=== PATIENT | female | born 1935 | race Caucasian/White ===

== ENCOUNTER 2019-02-03 15:55 | Emergency (ER) | payer MEDICARE ==
[2019-02-03 16:13] VITALS: BP 122/73
--- NOTE | 2019-02-03 16:19 | EDM.PDOC ---
ED HPI GENERAL MEDICAL PROBLEM - General Chief Complaint: Upper Extremity Injury/Pain Stated Complaint: SENT FROM CLINIC Time Seen by Provider: 02/03/19 16:00 Source of Information: Reports: Patient, Detention Records, RN Notes Reviewed History Limitations: Reports: Other (Patient is a poor historian) - History of Present Illness INITIAL COMMENTS - FREE TEXT/NARRATIVE: 83-year-old female who presents from the walk-in clinic secondary to right hand weakness. Apparently the patient lives in the [facility] here at [place] and was noted by the staff this morning to have weakness of her right hand and wrist. She was unable to use her right hand or to extend her right wrist. She also had some weakness and moving her right upper extremity as well. The patient tells me that she noted the right hand weakness last night. She has had no headache. She has had no nausea or vomiting. There's been no trauma to the area. No fevers or chills. She does not appear to have any leg weakness nor does she have any complaints of leg weakness. His no numbness to her hand or elsewhere in her body. She is having no vision problems. She has had no falls. She denies any pain currently. She rates her pain as a 0/10. The history is gathered from the report from the [facility] and the report from the walk-in clinic and from the patient who is a poor historian. This is all the history that can be obtained at this point. There are no other associated signs or symptoms. There are no other modifying factors. 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: Other (see below) (Nothing) - Related Data Allergies Allergy/AdvReac Type Severity Reaction Status Date / Time No Known Allergies Allergy Verified 05/13/13 17:52 Home Meds: Home Meds Cholecalciferol (Vitamin D3) [Vitamin D3] 1,000 units PO DAILY 02/07/16 [History ] Famotidine 10 mg PO BEDTIME 02/07/16 [History] Lisinopril/Hydrochlorothiazide [Lisinopril-Hctz 10-12.5 mg Tab] 1 tab PO DAILY 02/07/16 [History] Nicotine [Habitrol] 21 mg TRDERM DAILY PRN #14 patch 02/10/16 [Rx] Sulfamethoxazole/Trimethoprim [IJD: Sulfamethoxazole/Trimethoprim DS] 1 tab PO BID #12 tablet 02/10/16 [Rx] Past Medical History HEENT History: Reports: Impaired Vision Cardiovascular History: Reports: Hypertension Gastrointestinal History: Reports: Chronic Constipation Musculoskeletal History: Reports: Back Pain, Chronic Psychiatric History: Reports: Addiction Endocrine/Metabolic History: Reports: Diabetes, Type II Oncologic (Cancer) History: Reports: Ovarian Dermatologic History: Reports: Other (See Below) (Bedsores) Other Dermatologic History: ulcer and open areas on labia, has pressure areas on buttocks. Has open area on Lt buttock and pressure there and coccyx area. - Infectious Disease History Infectious Disease History: Reports: Influenza - Past Surgical History GI Surgical History: Reports: Appendectomy Female Surgical History: Reports: Hysterectomy Social & Family History - Family History HEENT: Reports: Cataract Cardiac: Reports: None Respiratory: Reports: Asthma GI: Reports: None : Reports: None OBGYN: Reports: Musculoskeletal: Reports: None Neurological: Reports: Migraines, Parkinson's Psychiatric: Reports: Anxiety Endocrine/Metabolic: Reports: None Hematologic: Reports: None Immunologic: Reports: None Dermatologic: Reports: None Oncologic: Reports: None - Tobacco Use Smoking Status *Q: Unknown Ever Smoked - Living Situation & Occupation Living situation: Reports: Extended Care Facility (Lives in [facility]) Review of Systems - Review of Systems Review Of Systems: Unable To Obtain (The patient does respond to questions but her reliability is low.) Constitutional: Reports: No Symptoms (Denies fever) Eyes: Reports: No Symptoms (Denies vision problems) Ears: Reports: No Symptoms (Denies pain) Nose: Denies: Congestion Mouth/Throat: Reports: No Symptoms (Denies any trouble swallowing) Respiratory: Reports: No Symptoms (Denies trouble breathing) Cardiovascular: Reports: No Symptoms (Denies chest pain) GI/Abdominal: Reports: No Symptoms (No nausea no vomiting) Musculoskeletal: Reports: No Symptoms (No arm, leg or neck pain.) Neurological: Reports: Weakness (Of right hand and wrist) ED EXAM, GENERAL - Physical Exam Exam: See Below Exam Limited By: No Limitations General Appearance: Alert, No Apparent Distress, Obese Eye Exam: Bilateral Eye: EOMI, PERRL Ears: Normal External Exam Ear Exam: Bilateral Ear: Auricle Normal Nose: Normal Inspection, Normal Mucosa, No Blood Throat/Mouth: Normal Inspection, Normal Voice (Has slight slurred speech which per her history is unchanged) Head: Atraumatic, Normocephalic Neck: Normal Inspection, Supple, Non-Tender, Full Range of Motion Respiratory/Chest: No Respiratory Distress, Lungs Clear, Normal Breath Sounds, No Accessory Muscle Use, Chest Non-Tender Cardiovascular: Normal Peripheral Pulses, Regular Rate, Rhythm, No JVD Peripheral Pulses: 2+: Radial (L), Radial (R) GI/Abdominal: Normal Bowel Sounds, Soft, Non-Tender, Other (Protuberant) Back Exam: Normal Inspection Extremities: Normal Capillary Refill Neurological: Alert, Memory Loss Recent Events, Other (Right hand and wrist weakness. She is unable to extend her wrist or her fingers of her right hand and she also seems to be weak and her right upper extremity as well. There is no leg weakness identified.) Skin Exam: Warm, Dry, Other (Small ulcer on right heel with no evidence of infection.) EKG INTERPRETATION EKG Date: 02/03/19 Time: 18:42 Rate (Beats/Min): 84 [place]: Normal P-Wave: Present QRS: Normal ST-T: Other (Nonspecific ST-T changes) QT: Prolonged Comparison: NA - No Prior EKG EKG Interpretation Comments: Possible old inferior RI. Course - Vital Signs Last Recorded V/S: Last Vital Signs Temp 36.4 C 02/03/19 15:55 Pulse 90 02/03/19 15:55 Resp 18 02/03/19 15:55 BP 122/73 02/03/19 15:55 Pulse Ox 93 L 02/03/19 15:55 - Orders/Labs/Meds Orders: Active Orders 24 hr Category Date Time Status EKG Documentation Completion [RC] ASDIRECTED Care 02/03/19 16:32 Active Cervical Spine wo Cont [CT] Stat Exams 02/03/19 16:31 Ordered Chest 1V Frontal [CR] Stat Exams 02/03/19 16:31 Ordered Head wo Cont [CT] Stat Exams 02/03/19 16:31 Ordered EKG 12 Lead [EK] Routine Ther 02/03/19 16:31 Ordered Labs: Laboratory Tests 02/03/19 02/03/19 02/03/19 Range/Units 16:40 16:40 16:40 WBC 8.5 (4.5-12.0) X10-3/uL RBC 4.47 (3.23-5.20) x10(6)uL Hgb 12.9 (11.5-15.5) g/dL Hct 39.3 (30.0-51.3) % MCV 88.0 (80-96) fL MCH 28.9 (27.7-33.6) pg MCHC 32.9 (32.2-35.4) g/dL RDW 14.0 (11.5-15.5) % Plt Count 410 H (125-369) X10(3)uL MPV 7.7 (7.4-10.4) fL Neut % (Auto) 62.6 (46-82) % Lymph % (Auto) 26.3 (13-37) % [place] % (Auto) 7.7 (4-12) % Eos % (Auto) 3 (1.0-5.0) % Baso % (Auto) 0 (0-2) % Neut # (Auto) 5.3 (1.6-8.3) # Lymph # (Auto) 2.2 (0.6-5.0) # [place] # (Auto) 0.7 (0.0-1.3) # Eos # (Auto) 0.3 (0.0-0.8) # Baso # (Auto) 0.0 (0.0-0.2) # PT 9.8 (8.7-11.1) INR 1.01 (0.89-1.13) Sodium 136 (135-145) mmol/L Potassium 4.8 (3.5-5.3) mmol/L Chloride 97 L (100-110) mmol/L Carbon Dioxide 28 (21-32) mmol/L BUN 62 H D (7-18) mg/dL Creatinine 1.2 H (0.55-1.02) mg/dL Est Cr Clr Drug Dosing TNP Estimated GFR (MDRD) 43 L (>60) BUN/Creatinine Ratio 51.7 H (9-20) Glucose 137 H (80-116) mg/dL Calcium 9.5 (8.6-10.2) mg/dL Magnesium 1.8 (1.8-2.5) mg/dL Total Bilirubin 0.3 (0.1-1.3) mg/dL AST 14 (5-25) IU/L ALT 18 (12-36) U/L Alkaline Phosphatase 130 H (56-112) IU/L Total Protein 7.8 (6.0-8.0) g/dL Albumin 3.3 (3.2-4.6) g/dL Globulin 4.5 g/dL Albumin/Globulin Ratio 0.7 Urine Color (YELLOW) Urine Appearance (CLEAR) Urine pH (5.0-6.5) Ur Specific [place] (1.010-1.025) Urine Protein (NEGATIVE) mg/dL Urine Glucose (UA) (NORMAL) mg/dL Urine Ketones (NEGATIVE) mg/dL Urine Occult Blood (NEGATIVE) Urine Nitrite (NEGATIVE) Urine Bilirubin (NEGATIVE) Urine Urobilinogen (NEGATIVE) mg/dL Ur Leukocyte Esterase (NEGATIVE) Urine RBC (0-5) Urine WBC (0-5) Ur Squamous Epith Cells (NS,R,O) Urine Bacteria (NS) 02/03/19 Range/Units 18:36 WBC (4.5-12.0) X10-3/uL RBC (3.23-5.20) x10(6)uL Hgb (11.5-15.5) g/dL Hct (30.0-51.3) % MCV (80-96) fL MCH (27.7-33.6) pg MCHC (32.2-35.4) g/dL RDW (11.5-15.5) % Plt Count (125-369) X10(3)uL MPV (7.4-10.4) fL Neut % (Auto) (46-82) % Lymph % (Auto) (13-37) % [place] % (Auto) (4-12) % Eos % (Auto) (1.0-5.0) % Baso % (Auto) (0-2) % Neut # (Auto) (1.6-8.3) # Lymph # (Auto) (0.6-5.0) # [place] # (Auto) (0.0-1.3) # Eos # (Auto) (0.0-0.8) # Baso # (Auto) (0.0-0.2) # PT (8.7-11.1) INR (0.89-1.13) Sodium (135-145) mmol/L Potassium (3.5-5.3) mmol/L Chloride (100-110) mmol/L Carbon Dioxide (21-32) mmol/L BUN (7-18) mg/dL Creatinine (0.55-1.02) mg/dL Est Cr Clr Drug Dosing Estimated GFR (MDRD) (>60) BUN/Creatinine Ratio (9-20) Glucose (80-116) mg/dL Calcium (8.6-10.2) mg/dL Magnesium (1.8-2.5) mg/dL Total Bilirubin (0.1-1.3) mg/dL AST (5-25) IU/L ALT (12-36) U/L Alkaline Phosphatase (56-112) IU/L Total Protein (6.0-8.0) g/dL Albumin (3.2-4.6) g/dL Globulin g/dL Albumin/Globulin Ratio Urine Color Yellow (YELLOW) Urine Appearance Clear (CLEAR) Urine pH 7.0 H (5.0-6.5) Ur Specific [place] 1.000 L (1.010-1.025) Urine Protein Negative (NEGATIVE) mg/dL Urine Glucose (UA) Normal (NORMAL) mg/dL Urine Ketones Negative (NEGATIVE) mg/dL Urine Occult Blood Negative (NEGATIVE) Urine Nitrite Negative (NEGATIVE) Urine Bilirubin Negative (NEGATIVE) Urine Urobilinogen 1 H (NEGATIVE) mg/dL Ur Leukocyte Esterase Negative (NEGATIVE) Urine RBC 0-5 (0-5) Urine WBC 0-5 (0-5) Ur Squamous Epith Cells Rare (NS,R,O) Urine Bacteria Rare H (NS) - Radiology Interpretation Free Text/Narrative:: CT scan of head showed no evidence of stroke or bleeding per the radiologist. CT scan of cervical spine showed no evidence of fracture. Portal chest x-ray shows no acute disease. - Re-Assessments/Exams Free Text/Narrative Re-Assessment/Exam: 02/03/19 18:45: Patient's exam is consistent with a small stroke on the left motor strip affecting her right hand and wrist. She may have a little involvement of her right arm as well. Her blood tests are reassuringly normal or unchanged from previous. Her chest x-ray was normal. The CT scan of her head showed no bleeding and as of yet no evidence of acute stroke. The cervical spine CT showed no evidence of fracture. The urinalysis is pending at this point. The patient has remained vitally and neurologically stable while in the emergency department. It appears that the stroke is greater than 24 hours old. It is also possible that this represents a peripheral nerve palsy but I have no history of trauma or circumstances that would have led to this occurring. She is a resident of [facility] and the level of care that she would need or treatment of her with assistance of daily living activities and physical therapy could be performed in the [facility] and acute admission to the hospital would be unnecessary. The patient is desirous of going back to the [facility] and I called and discussed her case with Raman Silvestre, her son and power of training and development assistant, and he feels that discharge back to the [facility] with appropriate follow-up and outpatient testing and set up of the physical and occupational therapy to be done at the [facility] through her primary doctor would be appropriate. I am awaiting the results of the urine test and the nursing staff will do a bedside swallowing eval. If the patient passes her bedside swallowing evaluation she will go back to the [facility] as outlined above with any further workup needed as an outpatient through the [facility] and her primary doctor. I will also place patient on aspirin 325 mg by mouth daily. 02/03/19 19:11: Urinalysis was normal. Patient has passed the bedside swallow eval. I discussed admission to the hospital versus disposition back to the [facility] with the patient and she is desirous of being discharged back to the [facility] with any additional outpatient workup and therapy through her primary doctor through the [facility]. I did offer her admission but she would prefer to be back at the [facility]. Departure - Departure Time of Disposition: 19:30 Disposition: DC/Tfer to [facility] Condition: Fair (Stable) Clinical Impression: Right hand weakness CVA (cerebral vascular accident) Qualifiers: CVA mechanism: unspecified Qualified Code(s): I63.9 - Cerebral infarction, unspecified - Discharge Information Instructions: Ischemic Stroke, [id number] Referrals: Luis Perdomo MD [Primary Care Provider] - Forms: ED Department Discharge Additional Instructions: You appear to have had a stroke involving the part of the brain the controls her right hand and wrist and part of your right arm. It is also possible that you had an injury to a nerve going to your right arm from your neck. However, I feel that the hand and arm weakness is likely from a stroke. Your blood tests and urine tests were reassuringly normal or unchanged from previous. Your EKG was normal. There is really no difference in the care that he would receive at the [facility] as opposed to the hospital and therefore you are being discharged back to the [facility]. Your primary doctor will arrange for further testing that can be done through the [facility] and for physical and occupational therapy which may also be done through the [facility]. You will be given 1 full strength aspirin every day as medicine. Back to the emergency department for worsening weakness, vomiting, inability to swallow liquids or food, trouble talking or any other concerning sign or symptom. - My Orders Last 24 Hours: My Active Orders 02/03/19 16:31 Cervical Spine wo Cont [CT] Stat Chest 1V Frontal [CR] Stat Head wo Cont [CT] Stat EKG 12 Lead [EK] Routine 02/03/19 16:32 EKG Documentation Completion [RC] ASDIRECTED - Assessment/Plan Last 24 Hours: My Active Orders 02/03/19 16:31 Cervical Spine wo Cont [CT] Stat Chest 1V Frontal [CR] Stat Head wo Cont [CT] Stat EKG 12 Lead [EK] Routine 02/03/19 16:32 EKG Documentation Completion [RC] ASDIRECTED
[2019-02-03] MEDS ORDERED: Aspirin 81 MG Tab.Chew PO ONE (19:14)
== END 2019-02-03 19:41 ==
LOC: FB.ED 15:55
DX: I63.9 Cerebral infarction, unspecified (principal); I10 Essential (primary) hypertension; E11.9 Type 2 diabetes mellitus without complications; Z79.899 Other long term (current) drug therapy
CPT/HCPCS: 36415; 70450; 71045; 72125; 80053; 81001; 83735; 85025; 85610; 93005; 99285; A9270

== ENCOUNTER 2019-09-13 05:15 | Emergency (ER) | payer MEDICARE ==
[2019-09-13] MEDS ORDERED: Sodium Chloride 0.9% 10 ML Syringe FLUSH PRN (05:28)
--- NOTE | 2019-09-13 05:52 | EDM.PDOC ---
ED HPI GENERAL MEDICAL PROBLEM - General Stated Complaint: STROKE Time Seen by Provider: 09/13/19 05:20 Source of Information: Reports: Patient History Limitations: Reports: No Limitations - History of Present Illness INITIAL COMMENTS - FREE TEXT/NARRATIVE: 84 [facility] resident who reports droopiness of the face to the left, reported to staff at about 0430. She was last seen well at 0215. Was also noted to have slurred speech. Filomena has a h/o a Stroke, HTN, and DM2.She is a full body lift. - Related Data Allergies Allergy/AdvReac Type Severity Reaction Status Date / Time No Known Allergies Allergy Verified 05/13/13 17:52 Home Meds: Home Meds Cholecalciferol (Vitamin D3) [Vitamin D3] 1,000 units PO DAILY 02/07/16 [History ] Famotidine 10 mg PO BEDTIME 02/07/16 [History] Lisinopril/Hydrochlorothiazide [Lisinopril-Hctz 10-12.5 mg Tab] 1 tab PO DAILY 02/07/16 [History] Nicotine [Habitrol] 21 mg TRDERM DAILY PRN #14 patch 02/10/16 [Rx] Sulfamethoxazole/Trimethoprim [IJD: Sulfamethoxazole/Trimethoprim DS] 1 tab PO BID #12 tablet 02/10/16 [Rx] Past Medical History HEENT History: Reports: Impaired Vision Cardiovascular History: Reports: Hypertension Respiratory History: Reports: None Gastrointestinal History: Reports: Chronic Constipation Other Gastrointestinal History: problems with constipation Genitourinary History: Reports: None 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 Does not take pills for this, stopped at least 3 years ago Hematologic History: Reports: None Immunologic History: Reports: None Oncologic (Cancer) History: Reports: Ovarian Dermatologic History: Reports: Other (See Below) (Bedsores) Other Dermatologic History: ulcer and open areas on labia, has pressure areas on buttocks. Has open area on Lt buttock and pressure there and coccyx area. - Infectious Disease History Infectious Disease History: Reports: Influenza - Past Surgical History GI Surgical History: Reports: Appendectomy Female Surgical History: Reports: Hysterectomy Social & Family History - Family History HEENT: Reports: Cataract Cardiac: Reports: None Respiratory: Reports: Asthma GI: Reports: None : Reports: None OBGYN: Reports: Musculoskeletal: Reports: None Neurological: Reports: Migraines, Parkinson's Psychiatric: Reports: Anxiety Endocrine/Metabolic: Reports: None Hematologic: Reports: None Immunologic: Reports: None Dermatologic: Reports: None Oncologic: Reports: None - Caffeine Use Caffeine Use: Reports: Coffee - Living Situation & Occupation Living situation: Reports: Extended Care Facility (Lives in [facility]) ED ROS GENERAL - Review of Systems Review Of Systems: Comprehensive ROS is negative, except as noted in HPI. ED EXAM, NEURO - Physical Exam Exam: See Below Exam Limited By: No Limitations General Appearance: Alert, No Apparent Distress Nose: Normal Inspection Throat/Mouth: Normal Inspection Head Exam: Atraumatic Neck: Normal Inspection Respiratory/Chest: No Respiratory Distress, Lungs Clear Cardiovascular: Normal Peripheral Pulses, Regular Rate, Rhythm, No Murmur Neurological: Alert, Other (mild left facial never palsy). No: CN II-XII Intact Extremities: Pedal Edema Psychiatric: Depressed Mood Skin Exam: Warm EKG INTERPRETATION Rhythm: NSR Course - Orders/Labs/Meds Orders: Active Orders 24 hr Category Date Time Status EKG Documentation Completion [RC] ASDIRECTED Care 09/13/19 05:28 Active EKG Documentation Completion [RC] ASDIRECTED Care 09/13/19 05:28 Active Head wo Cont [CT] Stat Exams 09/13/19 05:28 Ordered Sodium Chloride 0.9% [Saline Flush] Med 09/13/19 05:28 Active 10 ml FLUSH ASDIRECTED PRN Peripheral IV Insertion Adult [OM.PC] Routine Oth 09/13/19 05:28 Ordered EKG 12 Lead [EK] Routine Ther 09/13/19 05:28 Ordered Medication Orders Sodium Chloride (Saline Flush) 10 ml FLUSH ASDIRECTED PRN PRN Reason: Keep Vein Open Labs: Laboratory Tests 09/13/19 09/13/19 09/13/19 Range/Units 05:40 05:40 05:40 WBC 9.1 (4.5-12.0) X10-3/uL RBC 3.94 (3.23-5.20) x10(6)uL Hgb 11.8 (11.5-15.5) g/dL Hct 35.8 (30.0-51.3) % MCV 90.8 (80-96) fL MCH 30.0 (27.7-33.6) pg MCHC 33.1 (32.2-35.4) g/dL RDW 13.7 (11.5-15.5) % Plt Count 453 H (125-369) X10(3)uL MPV 7.3 L (7.4-10.4) fL Neut % (Auto) 69.9 (46-82) % Lymph % (Auto) 19.9 (13-37) % [place] % (Auto) 7.0 (4-12) % Eos % (Auto) 3 (1.0-5.0) % Baso % (Auto) 1 (0-2) % Neut # (Auto) 6.4 (1.6-8.3) # Lymph # (Auto) 1.8 (0.6-5.0) # [place] # (Auto) 0.6 (0.0-1.3) # Eos # (Auto) 0.2 (0.0-0.8) # Baso # (Auto) 0.1 (0.0-0.2) # Sodium 138 (135-145) mmol/L Potassium 4.2 (3.5-5.3) mmol/L Chloride 100 (100-110) mmol/L Carbon Dioxide 28 (21-32) mmol/L BUN 24 H (7-18) mg/dL Creatinine 1.1 H (0.55-1.02) mg/dL Est Cr Clr Drug Dosing TNP Estimated GFR (MDRD) 47 L (>60) BUN/Creatinine Ratio 21.8 H (9-20) Glucose 125 H (80-116) mg/dL Calcium 8.5 L (8.6-10.2) mg/dL Troponin I 25.1 (4.0-60.3) pg/mL Meds: Medications Generic Name Dose Route Start Last Admin Trade Name Freq PRN Reason Stop Dose Admin Sodium Chloride 10 ml 09/13/19 05:28 Saline Flush FLUSH ASDIRECTED PRN Keep Vein Open Departure - Departure Time of Disposition: 05:58 Disposition: DC/Tfer to SNF 03 Clinical Impression: H/O: CVA (cerebrovascular accident), TIA (transient ischemic attack) - Discharge Information Instructions: Transient Ischemic Attack, [id number] Referrals: PCP,None [Primary Care Provider] - Forms: ED Department Discharge Sepsis Event Note - Focused Exam Date Exam was Performed: 09/13/19 Time Exam was Performed: 06:14 - Problem List & Annotations (1) TIA (transient ischemic attack) SNOMED Code(s): 044287994 Code(s): G45.9 - TRANSIENT CEREBRAL ISCHEMIC ATTACK, UNSPECIFIED Status: Acute Current Visit: Yes (2) HTN (hypertension) SNOMED Code(s): 34082464 Code(s): I10 - ESSENTIAL (PRIMARY) HYPERTENSION Status: Acute Current Visit: Yes Qualifiers: Hypertension type: essential hypertension Qualified Code(s): I10 - Essential (primary) hypertension (3) DM2 (diabetes mellitus, type 2) SNOMED Code(s): 45631312 Code(s): E11.9 - TYPE 2 DIABETES MELLITUS WITHOUT COMPLICATIONS Status: Acute Current Visit: Yes (4) H/O: CVA (cerebrovascular accident) SNOMED Code(s): 624473495 Code(s): Z86.73 - PRSNL HX OF TIA (TIA), AND CEREB INFRC W/O RESID DEFICITS Status: Acute Current Visit: Yes - Problem List Review Problem List Initiated/Reviewed/Updated: Yes - My Orders Last 24 Hours: My Active Orders 09/13/19 05:28 EKG Documentation Completion [RC] ASDIRECTED EKG Documentation Completion [RC] ASDIRECTED Head wo Cont [CT] Stat Sodium Chloride 0.9% [Saline Flush] 10 ml FLUSH ASDIRECTED PRN Peripheral IV Insertion Adult [OM.PC] Routine EKG 12 Lead [EK] Routine - Assessment/Plan Last 24 Hours: My Active Orders 09/13/19 05:28 EKG Documentation Completion [RC] ASDIRECTED EKG Documentation Completion [RC] ASDIRECTED Head wo Cont [CT] Stat Sodium Chloride 0.9% [Saline Flush] 10 ml FLUSH ASDIRECTED PRN Peripheral IV Insertion Adult [OM.PC] Routine EKG 12 Lead [EK] Routine Plan: CT was negative,as was EKG.Patient on ASA. Vital signs stable No focal signs noted on extremity exam. Will DC back to [place].
[2019-09-13 07:19] VITALS: BP 133/65; PULSE 86
== END 2019-09-13 06:33 ==
LOC: FB.ED 05:15
DX: G45.9 Transient cerebral ischemic attack, unspecified (principal); I10 Essential (primary) hypertension; E11.9 Type 2 diabetes mellitus without complications; Z79.899 Other long term (current) drug therapy; Z86.73 Personal history of transient ischemic attack (TIA), and cerebral infarction without residual deficits
CPT/HCPCS: 36415; 70450; 80048; 84484; 85025; 93005; 93010; 99284; 99285-25

== ENCOUNTER 2020-09-19 16:01 | Inpatient (IN) | payer MEDICARE ==
[2020-09-19] MEDS ORDERED: Sodium Chloride 0.9% 500 ML IV ONE (16:38)
--- NOTE | 2020-09-19 16:45 | EDM.PDOC ---
ED HPI GENERAL MEDICAL PROBLEM - General Chief Complaint: General Stated Complaint: NOT FEELING WELL Time Seen by Provider: 09/19/20 16:40 Source of Information: Reports: Patient, Snf Records History Limitations: Reports: Other (Dementia) - History of Present Illness INITIAL COMMENTS - FREE TEXT/NARRATIVE: Patient sent from the [facility] due to nausea, cough, chills, poor PO intake, tachycardia to 103 bpm, and generalized weakness since this morning. But feels better now than she did this morning. CXR done on 09/14/20 showed possible pneumonia, she was not prescribed antibiotics. Patient was given her 2nd COVID vaccine yesterday. Denies chest pain, SOB, abdominal pain, or vomiting. She states she hasn't eaten today due to nausea. Patient code status is DNR per [facility] records. Onset: Today - Related Data Allergies Allergy/AdvReac Type Severity Reaction Status Date / Time No Known Allergies Allergy Verified 09/19/20 16:25 Home Meds: Home Meds Acetaminophen 650 mg PO Q4HR PRN 09/19/20 [History] Albuterol Sulfate 1 ampule INH TID PRN 09/19/20 [History] Aspirin 325 mg PO DAILY 09/19/20 [History] Bumetanide [Bumex] 0.5 mg PO DAILY 09/19/20 [History] Camphor/Menthol [Sarna Lotion] 1 applic TOP BID 09/19/20 [History] Gabapentin [Neurontin] 100 mg PO TID 09/19/20 [History] Magnesium 250 mg PO DAILY 09/19/20 [History] Menthol [Biofreeze] 1 applic TOP BID 09/19/20 [History] Omeprazole 20 mg PO ACBREAKFAST 09/19/20 [History] lisinopriL [Lisinopril] 10 mg PO DAILY 09/19/20 [History] metFORMIN [Glucophage] 1,000 mg PO DAILY 09/19/20 [History] metFORMIN [Glucophage] 500 mg PO BEDTIME 09/19/20 [History] polyethylene glycoL 3350 [MiraLAX] 17 g PO ASDIRECTED 09/19/20 [History] Past Medical History HEENT History: Reports: Impaired Vision Cardiovascular History: Reports: Hypertension Respiratory History: Reports: None Gastrointestinal History: Reports: Chronic Constipation, GERD Other Gastrointestinal History: problems with constipation Genitourinary History: Reports: None KEY FILER History: Reports: Musculoskeletal History: Reports: Back Pain, Chronic Neurological History: Reports: CVA, TIA Psychiatric History: Reports: Dementia Endocrine/Metabolic History: Reports: Diabetes, Type II Other Endocrine/Metabolic History: borderline diabetic? Does not take pills for this, stopped at least 3 years ago Hematologic History: Reports: None Immunologic History: Reports: None Oncologic (Cancer) History: Reports: Ovarian - Infectious Disease History Infectious Disease History: Reports: Influenza - Past Surgical History GI Surgical History: Reports: Appendectomy Female Surgical History: Reports: Hysterectomy Social & Family History - Family History HEENT: Reports: Cataract Cardiac: Reports: None Respiratory: Reports: Asthma GI: Reports: None : Reports: None OBGYN: Reports: Musculoskeletal: Reports: None Neurological: Reports: Migraines, Parkinson's Psychiatric: Reports: Anxiety Endocrine/Metabolic: Reports: None Hematologic: Reports: None Immunologic: Reports: None Dermatologic: Reports: None Oncologic: Reports: None - Caffeine Use Caffeine Use: Reports: Coffee - Living Situation & Occupation Living situation: Reports: Extended Care Facility (Lives in [facility]) ED ROS GENERAL - Review of Systems Review Of Systems: Comprehensive ROS is negative, except as noted in HPI. ED EXAM, GENERAL - Physical Exam Exam: See Below Exam Limited By: No Limitations General Appearance: Alert, WD/WN, No Apparent Distress Eye Exam: Bilateral Eye: EOMI, PERRL Nose: Normal Inspection Throat/Mouth: No Airway Compromise Head: Atraumatic, Normocephalic Neck: Supple Respiratory/Chest: No Respiratory Distress, Lungs Clear, Normal Breath Sounds Cardiovascular: Regular Rate, Rhythm, No Gallop, No Murmur GI/Abdominal: Normal Bowel Sounds, Soft, Non-Tender, No Distention Back Exam: Full Range of Motion Extremities: Normal Range of Motion Neurological: Alert Skin Exam: Warm, Dry, Intact #1 Interpretation EKG Date: 09/19/20 Time: 17:46 Rhythm: NSR Rate (Beats/Min): 94 [place]: Normal P-Wave: Present QRS: Other (Nonspecific intraventricular conduction delay) ST-T: Depressed (lateral leads) QT: Normal Comparison: Change From Previous EKG Course - Vital Signs Last Recorded V/S: Last Vital Signs Temp 36.7 C 09/19/20 16:05 Pulse 93 09/19/20 17:00 Resp 18 09/19/20 17:00 BP 103/62 09/19/20 17:00 Pulse Ox 97 09/19/20 17:00 - Orders/Labs/Meds Orders: Active Orders 24 hr Category Date Time Status EKG Documentation Completion [RC] ASDIRECTED Care 09/19/20 17:20 Active CORONAVIRUS COVID-19 MARKUS [MOLEC] Stat Lab 09/19/20 18:15 Received CULTURE BLOOD [BC] Urgent Lab 09/19/20 16:48 Received CULTURE BLOOD [BC] Urgent Lab 09/19/20 16:55 Received CULTURE URINE [RM] Stat Lab 09/19/20 18:53 Ordered LACTIC ACID [CHEM] Routine Lab 09/19/20 19:00 Ordered TROPONIN I [CHEM] Routine Lab 09/19/20 19:00 Ordered Heparin Sodium/0.45% NaCl [Heparin 25,000 Units in 1/2 Med 09/19/20 19:00 Active NS 500 ML] 25,000 units in 500 ml IV TITRATE Blood Culture x2 Reflex Set [OM.PC] Urgent Oth 09/19/20 16:35 Ordered Isolation [COMM] Routine Oth 09/19/20 16:37 Ordered EKG 12 Lead [EK] Stat Ther 09/19/20 17:19 Ordered Medication Orders Heparin Sodium/Sodium Chloride (Heparin 25,000 Units In 1/2 Ns 500 Ml) 25,000 units in 500 mls @ 17.527 mls/hr IV TITRATE DEO; Protocol Labs: Laboratory Tests 09/19/20 09/19/20 09/19/20 Range/Units 16:48 16:48 16:48 WBC 10.1 (3.0-10.3) x10-3/uL RBC 4.26 (3.60-5.20) x10(6)uL Hgb 12.5 (11.4-15.5) g/dL Hct 39.2 (34.2-48.2) % MCV 92.1 (76.7-100.5) fL MCH 29.4 (23.9-33.9) pg MCHC 31.9 (31.9-34.8) g/dL RDW 15.5 (12.3-16.5) % Plt Count 394 (151-488) x10(3)uL MPV 8.3 (7.1-12.4) fL Neut % (Auto) 88.7 H (30.8-76.2) % Lymph % (Auto) 5.6 L (18.4-52.1) % [place] % (Auto) 5.4 (4.4-15.7) % Eos % (Auto) 0.0 L (0.6-8.1) % Baso % (Auto) 0.3 (0.2-1.5) % Neut # (Auto) 8.9 H (1.5-6.3) x10-3/uL Lymph # (Auto) 0.6 L (1.0-4.4) x10-3/uL [place] # (Auto) 0.5 (0.3-1.0) x10-3/uL Eos # (Auto) 0.0 (0.0-0.8) x10-3/uL Baso # (Auto) 0.0 (0.0-0.1) x10-3/uL PT (9.0-11.1) sec INR (1.00-1.24) APTT (24.4-33.2) SECONDS Sodium 135 (135-145) mmol/L Potassium 4.0 (3.5-5.3) mmol/L Chloride 98 L (100-110) mmol/L Carbon Dioxide 24 (21-32) mmol/L BUN 34 H (7-18) mg/dL Creatinine 1.2 H (0.55-1.02) mg/dL Est Cr Clr Drug Dosing 29.06 mL/min Estimated GFR (MDRD) 43 L (>60) BUN/Creatinine Ratio 28.3 H (9-20) Glucose 194 H (80-116) mg/dL Lactic Acid (0.4-2.0) mmol/L Calcium 9.4 (8.6-10.2) mg/dL Total Bilirubin 0.4 (0.1-1.3) mg/dL AST 81 H D (5-25) IU/L ALT 90 H D (12-36) U/L Alkaline Phosphatase 545 H (56-112) IU/L Troponin I 2703.5 H* (4.0-60.3) pg/mL Total Protein 7.9 (6.0-8.0) g/dL Albumin 3.1 L (3.2-4.6) g/dL Globulin 4.8 g/dL Albumin/Globulin Ratio 0.7 Urine Color (YELLOW) Urine Appearance (CLEAR) Urine pH (5.0-6.5) Ur Specific [place] (1.010-1.025) Urine Protein (NEGATIVE) mg/dL Urine Glucose (UA) (NORMAL) mg/dL Urine Ketones (NEGATIVE) mg/dL Urine Occult Blood (NEGATIVE) Urine Nitrite (NEGATIVE) Urine Bilirubin (NEGATIVE) Urine Urobilinogen (NEGATIVE) mg/dL Ur Leukocyte Esterase (NEGATIVE) Urine RBC (0-5) Urine WBC (0-5) Ur Squamous Epith Cells (NS,R,O) Amorphous Sediment Urine Bacteria (NS) Urine Mucus (NS) 09/19/20 09/19/20 09/19/20 Range/Units 16:48 16:48 17:30 WBC (3.0-10.3) x10-3/uL RBC (3.60-5.20) x10(6)uL Hgb (11.4-15.5) g/dL Hct (34.2-48.2) % MCV (76.7-100.5) fL MCH (23.9-33.9) pg MCHC (31.9-34.8) g/dL RDW (12.3-16.5) % Plt Count (151-488) x10(3)uL MPV (7.1-12.4) fL Neut % (Auto) (30.8-76.2) % Lymph % (Auto) (18.4-52.1) % [place] % (Auto) (4.4-15.7) % Eos % (Auto) (0.6-8.1) % Baso % (Auto) (0.2-1.5) % Neut # (Auto) (1.5-6.3) x10-3/uL Lymph # (Auto) (1.0-4.4) x10-3/uL [place] # (Auto) (0.3-1.0) x10-3/uL Eos # (Auto) (0.0-0.8) x10-3/uL Baso # (Auto) (0.0-0.1) x10-3/uL PT 10.9 (9.0-11.1) sec INR 1.01 (1.00-1.24) APTT 24.3 L (24.4-33.2) SECONDS Sodium (135-145) mmol/L Potassium (3.5-5.3) mmol/L Chloride (100-110) mmol/L Carbon Dioxide (21-32) mmol/L BUN (7-18) mg/dL Creatinine (0.55-1.02) mg/dL Est Cr Clr Drug Dosing mL/min Estimated GFR (MDRD) (>60) BUN/Creatinine Ratio (9-20) Glucose (80-116) mg/dL Lactic Acid 3.8 H* (0.4-2.0) mmol/L Calcium (8.6-10.2) mg/dL Total Bilirubin (0.1-1.3) mg/dL AST (5-25) IU/L ALT (12-36) U/L Alkaline Phosphatase (56-112) IU/L Troponin I (4.0-60.3) pg/mL Total Protein (6.0-8.0) g/dL Albumin (3.2-4.6) g/dL Globulin g/dL Albumin/Globulin Ratio Urine Color Yellow (YELLOW) Urine Appearance Cloudy (CLEAR) Urine pH 5.0 (5.0-6.5) Ur Specific [place] 1.005 L (1.010-1.025) Urine Protein Negative (NEGATIVE) mg/dL Urine Glucose (UA) Normal (NORMAL) mg/dL Urine Ketones 15 H (NEGATIVE) mg/dL Urine Occult Blood Negative (NEGATIVE) Urine Nitrite Negative (NEGATIVE) Urine Bilirubin Negative (NEGATIVE) Urine Urobilinogen Normal (NEGATIVE) mg/dL Ur Leukocyte Esterase Moderate H (NEGATIVE) Urine RBC 0-5 (0-5) Urine WBC 10-20 H (0-5) Ur Squamous Epith Cells Few H (NS,R,O) Amorphous Sediment Moderate Urine Bacteria Moderate H (NS) Urine Mucus Few H (NS) Meds: Medications Generic Name Dose Route Start Last Admin Trade Name Freq PRN Reason Stop Dose Admin Heparin Sodium/Sodium Chloride 25,000 units in 500 mls @ 17.527 mls/hr 09/19/20 19:00 Heparin 25,000 Units In 1/2 Ns 500 Ml IV TITRATE DEO Protocol 12 UNITS/KG/HR Discontinued Medications Generic Name Dose Route Start Last Admin Trade Name Freq PRN Reason Stop Dose Admin Cefepime HCl 2 gm 09/19/20 18:57 Maxipime IVPUSH 09/19/20 18:58 ONETIME ONE Heparin Sodium (Porcine) 3,650 units 09/19/20 18:50 Heparin Sodium IVPUSH 09/19/20 18:51 ONETIME ONE Sodium Chloride 500 mls @ 500 mls/hr 09/19/20 16:38 09/19/20 16:10 Normal Saline IV 09/19/20 17:37 500 mls/hr .BOLUS ONE Administration Sodium Chloride 1,000 mls @ 999 mls/hr 09/19/20 17:21 09/19/20 18:00 Normal Saline IV 09/19/20 18:21 999 mls/hr .BOLUS ONE Administration Piperacillin Sod/Tazobactam 50 mls @ 100 mls/hr 09/19/20 17:42 09/19/20 18:07 Sod 3.375 gm/ Sodium Chloride IV 09/19/20 18:11 100 mls/hr .ONCE ONE Administration Iopamidol 100 ml 09/19/20 16:50 09/19/20 17:18 Isovue-370 (76%) IV 09/19/20 16:51 76 ml ONETIME ONE Administration - Radiology Interpretation Free Text/Narrative:: CT Chest/Abd/Pelvis w/ IV contrast: IMPRESSION: 1. Cholelithiasis with cholecystitis and a degree of peritonitis at the gallblad lyla. There appears to be dilated biliary tree involving the right lobe of the liver. 2. ASD/ASHD. 3. Bibasilar pleruoparenchymal changes which may represent minimal pneumonia and pleuritis or possibly fibrosis. 4. Post-hysterectomy. 5. Renal cortical scarring. 6. Compression fracture L3 with degenerative changes and disc disease L4-5. 7. Slightly thickened wall of urinary bladder could represent cystitis - correlate clinically. Dictated by: Saurabh Walden MD - Re-Assessments/Exams Free Text/Narrative Re-Assessment/Exam: 09/19/20 19:08 I discussed treatment options with patient's son and BENITO Rebolledoe Silvestre. He chose conservative medical management of NSTEMI and cholecystitis, no invasive procedures at this time. He is agreeable to treating with antibiotics and anticoagulants. Patient's code status is to remain DNR. Dr. Thornton ([facility]) consulted, recommends Heparin drip, Plavix 300mg load, then 75mg daily, and ASA 81mg daily. Departure - Departure Time of Disposition: 19:18 Disposition: Admitted As Inpatient 65 Condition: Serious Clinical Impression: NSTEMI (non-ST elevated myocardial infarction), Elevated lactic acid level Cholecystitis with cholelithiasis Qualifiers: Cholelithiasis location: gallbladder Cholecystitis acuity: acute Biliary obstruction: without biliary obstruction Qualified Code(s): K80.00 - Calculus of gallbladder with acute cholecystitis without obstruction - Discharge Information Referrals: Luis Perdomo MD [Primary Care Provider] - Forms: ED Department Discharge Sepsis Event Note (ED) - Evaluation Sepsis Screening Result: No Definite Risk - Focused Exam Vital Signs: Vital Signs Temp Pulse Resp BP Pulse Ox 09/19/20 17:00 93 18 103/62 97 09/19/20 16:05 36.7 C 95 20 106/54 L 97 - My Orders Last 24 Hours: My Active Orders 09/19/20 16:35 Blood Culture x2 Reflex Set [OM.PC] Urgent 09/19/20 16:37 Isolation [COMM] Routine 09/19/20 16:48 CULTURE BLOOD [BC] Urgent 09/19/20 16:55 CULTURE BLOOD [BC] Urgent 09/19/20 17:19 EKG 12 Lead [EK] Stat 09/19/20 17:20 EKG Documentation Completion [RC] ASDIRECTED 09/19/20 18:15 CORONAVIRUS COVID-19 MARKUS [MOLEC] Stat 09/19/20 18:53 CULTURE URINE [RM] Stat 09/19/20 19:00 LACTIC ACID [CHEM] Routine TROPONIN I [CHEM] Routine Heparin Sodium/0.45% NaCl [Heparin 25,000 Units in 1/2 NS 500 ML] 25,000 units in 500 ml IV TITRATE - Assessment/Plan Last 24 Hours: My Active Orders 09/19/20 16:35 Blood Culture x2 Reflex Set [OM.PC] Urgent 09/19/20 16:37 Isolation [COMM] Routine 09/19/20 16:48 CULTURE BLOOD [BC] Urgent 09/19/20 16:55 CULTURE BLOOD [BC] Urgent 09/19/20 17:19 EKG 12 Lead [EK] Stat 09/19/20 17:20 EKG Documentation Completion [RC] ASDIRECTED 09/19/20 18:15 CORONAVIRUS COVID-19 MARKUS [MOLEC] Stat 09/19/20 18:53 CULTURE URINE [RM] Stat 09/19/20 19:00 LACTIC ACID [CHEM] Routine TROPONIN I [CHEM] Routine Heparin Sodium/0.45% NaCl [Heparin 25,000 Units in 1/2 NS 500 ML] 25,000 units in 500 ml IV TITRATE
[2020-09-19] MEDS ORDERED: Iopamidol 755 Mg/ML 100 ML Bottle IV ONE (16:50)
[2020-09-19] MEDS ORDERED: Sodium Chloride 0.9% 1,000 ML IV ONE (17:21)
[2020-09-19] MEDS ORDERED: Piperacillin/Tazobactam 3.375 GM in Sodium Chloride 0.9% 50 ML IV ONE (17:42)
--- NOTE | 2020-09-19 18:33 | CT ---
INDICATION: Cough, vomiting. CT CHEST, ABDOMEN AND PELVIS WITH CONTRAST: Spiral 3.75 mm axial sections were obtained through the chest, abdomen and pelvis with 76 cc Isovue-370 at 2 cc/second with axial, sagittal, and coronal reconstructions in the chest and sagittal and coronal reconstructions in the abdomen and pelvis. CT CHEST: Examination of the chest was obtained by CT 09/19/20 as noted above - no comparisons. The heart did not appear grossly enlarged. No definite pericardial effusion was seen. Mediastinal lymphadenopathy is mild and nonspecific. No mediastinal masses were identified. Calcifications are noted in the coronary arteries and the aorta. A definite active infiltrate or effusion was not identified on the left. On the right, there appears to be some minimal consolidation at the right lower lobe with pleural reaction locally. The appearance could be on the basis of pneumonia and pleuritis or possibly fibrosis and should be correlated clinically. No other significant acute findings were seen in the chest. Narrowed disc spaces anteriorly with dorsal kyphosis is noted. IMPRESSION: Possible minimal pneumonia versus fibrosis at the right lower lobe/lung base. CT ABDOMEN AND PELVIS: Examination of the abdomen and pelvis was obtained by CT as noted above 09/19/20 - no comparisons. Total exam DLP was 1751.69 mGy-cm for the chest, abdomen and pelvis. The gallbladder is abnormal with pericholecystic fluid and possibly calcific rim calculi multiple and fairly large. Biliary tree is dilated in the right lobe of the liver. The common bile duct was prominent but at the head of the pancreas normal in caliber. No definite focal liver lesion was seen. The spleen appeared normal. The pancreas showed evidence of severe fatty replacement. The adrenal glands were grossly normal. Renal cortical scarring is noted with no other gross abnormality of the kidneys. Calcifications are noted in the abdominal aorta, splenic artery, distal iliac access, iliac and femoral arteries. The uterus is absent compatible with history of its removal. What appears to be the appendix appeared normal in caliber. No evidence of free air or bowel obstruction was seen. A large amount of gas and some stool is noted in the rectum. Urinary bladder was unremarkable except for slight thickening of the wall which could be on the basis of cystitis and should be correlated clinically. Osteoporotic compression fracture is noted at L3 of indeterminate age. Degenerative disc disease with hypertrophic changes are noted at L4-5. 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 IMPRESSION: 1. Cholelithiasis with cholecystitis and a degree of peritonitis at the gallbladder. There appears to be dilated biliary tree involving the right lobe of the liver. 2. ASD/ASHD. 3. Bibasilar pleuroparenchymal changes which may represent minimal pneumonia and pleuritis or possibly fibrosis. 4. Post-hysterectomy. 5. Renal cortical scarring. 6. Compression fracture L3 with degenerative changes and disc disease L4-5. 7. Slightly thickened wall of urinary bladder could represent cystitis - correlate clinically. Report was called to Dr. Rooney at 1750 hours. [facility]
[2020-09-19] MEDS ORDERED: Heparin Sodium 5,000 Units/ML Vial IVPUSH ONE (18:50)
[2020-09-19] MEDS ORDERED: Cefepime 2 GM Vial IVPUSH ONE (18:57)
[2020-09-19] MEDS: Sodium Chloride 0.9% 1,000 ML IV SCH (19:05)
[2020-09-19] MEDS ORDERED: Clopidogrel 75 MG Tab PO ONE (19:14)
[2020-09-19] MEDS: Heparin Sodium/0.45% NaCl 25,000 UNITS/500 ML BAG IV SCH (19:34)
[2020-09-19] MEDS ORDERED: Albuterol 0.083% 2.5 MG/3 ML Neb Soln INH PRN (19:40)
[2020-09-19] MEDS ORDERED: Acetaminophen 325 MG Tab PO PRN (19:40)
[2020-09-19] MEDS ORDERED: Cefepime 2 GM Vial IVPUSH SCH (20:00)
[2020-09-19] MEDS: Pantoprazole 40 MG Vial IVPUSH SCH (22:14)
[2020-09-20] MEDS: Piperacillin/Tazobactam 3.375 GM in Sodium Chloride 0.9% 50 ML IV SCH ×4 (01:17→18:40)
[2020-09-20] MEDS: Sodium Chloride 0.9% 1,000 ML IV SCH ×3 (02:20→23:36)
[2020-09-20] MEDS: Cefepime 2 GM Vial IVPUSH SCH ×2 (08:43→20:24)
[2020-09-20] MEDS: Clopidogrel 75 MG Tab PO SCH (08:44)
[2020-09-20] MEDS ORDERED: Aspirin 81 MG Tab.EC PO SCH (09:00)
[2020-09-20] MEDS: Gabapentin 100 MG Cap PO SCH ×3 (09:00→20:23)
--- NOTE | 2020-09-20 10:01 | PCM.HP.2 ---
H&P History of Present Illness - General Date of Service: 09/20/20 Admit Problem/Dx: Admission Diagnosis/Problem Admission Diagnosis/Problem NSTEMI, initial episode of care Source of Information: Patient, EMS Notes Reviewed - History of Present Illness Initial Comments - Free Text/Narative: Filomena presented to ER yesterday with loss of appetite, nausea, coughing, chills, weakness, tachycardia that started yesterday morning. Denied any chest pain, shortness of breath, abdominal pain, vomiting. She had chest x-ray on 09/14 with questionable RLL pneumonia but not placed on antibiotics. She had her 2nd COVID vaccine day before admission. She was found to have had an NSTEMI, troponin was 2723, 2197, CT chest/abdomen/pelvis: questionable Right lower lobe pneumonia vs fibrosis, cholelithiasis with cholecystitis, thickened bladder wall with abnormal urine study. WBC was 10.1 with Lactic acid of 2.5 then 1.3 when repeated. Chemistry was normal except BUN 28, AST 68, ALT 69, Alkaline phosphatase 408. She is a full body lift in the [facility], has some neurocognitive deficits, she is a DNR/DNI, they did not want her transferred to [place] for PCI intervention. Dr Rooney consulted Dr Thornton, [facility] from ER, had advised Heparin drip, loading dose of Plavix 300 mg then to start today Plavix 75 mg daily with Aspirin 81 mg daily. COVID test was negative. Influenza was negative. - Related Data Allergies/Adverse Reactions: Allergies Allergy/AdvReac Type Severity Reaction Status Date / Time No Known Allergies Allergy Verified 09/19/20 16:25 Home Medications: Home Meds Acetaminophen 650 mg PO Q4HR PRN 09/19/20 [History] Albuterol Sulfate 1 ampule INH TID PRN 09/19/20 [History] Aspirin 325 mg PO DAILY 09/19/20 [History] Bumetanide [Bumex] 0.5 mg PO DAILY 09/19/20 [History] Camphor/Menthol [Sarna Lotion] 1 applic TOP BID 09/19/20 [History] Gabapentin [Neurontin] 100 mg PO TID 09/19/20 [History] Magnesium 250 mg PO DAILY 09/19/20 [History] Menthol [Biofreeze] 1 applic TOP BID 09/19/20 [History] Omeprazole 20 mg PO ACBREAKFAST 09/19/20 [History] lisinopriL [Lisinopril] 10 mg PO DAILY 09/19/20 [History] metFORMIN [Glucophage] 1,000 mg PO DAILY 09/19/20 [History] metFORMIN [Glucophage] 500 mg PO BEDTIME 09/19/20 [History] polyethylene glycoL 3350 [MiraLAX] 17 g PO MOWEFR 09/19/20 [History] Past Medical History HEENT History: Reports: Impaired Vision Cardiovascular History: Reports: Hypertension Respiratory History: Reports: None Gastrointestinal History: Reports: Chronic Constipation, GERD Other Gastrointestinal History: problems with constipation Genitourinary History: Reports: None 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 Does not take pills for this, stopped at least 3 years ago Hematologic History: Reports: None Immunologic History: Reports: None Oncologic (Cancer) History: Reports: Ovarian Dermatologic History: Reports: Other (See Below) Other Dermatologic History: ulcer and open areas on labia, has pressure areas on buttocks. Has open area on Lt buttock and pressure there and coccyx area. - Infectious Disease History Infectious Disease History: Reports: Influenza - Past Surgical History Head Surgeries/Procedures: Reports: None HEENT Surgical History: Reports: None Cardiovascular Surgical History: Reports: None Respiratory Surgical History: Reports: None GI Surgical History: Reports: Appendectomy Female Surgical History: Reports: Hysterectomy Endocrine Surgical History: Reports: None Neurological Surgical History: Reports: None Musculoskeletal Surgical History: Reports: None Oncologic Surgical History: Reports: None Dermatological Surgical History: Reports: None Social & Family History - Family History Family Medical History: No Pertinent Family History HEENT: Reports: Cataract Cardiac: Reports: None Respiratory: Reports: Asthma GI: Reports: None : Reports: None OBGYN: Reports: Musculoskeletal: Reports: None Neurological: Reports: Migraines, Parkinson's Psychiatric: Reports: Anxiety Endocrine/Metabolic: Reports: None Hematologic: Reports: None Immunologic: Reports: None Dermatologic: Reports: None Oncologic: Reports: None - Tobacco Use Tobacco Use Status *Q: Unknown Ever Used Tobacco - Caffeine Use Caffeine Use: Reports: None - Recreational Drug Use Recreational Drug Use: No - Living Situation & Occupation Living situation: Reports: Extended Care Facility (Lives in [facility]) H&P Review of Systems - Review of Systems: Review Of Systems: Comprehensive ROS is negative, except as noted in HPI. Exam - Exam Exam: See Below - Vital Signs Vital Signs: Last Vital Signs Temp 98.5 F 09/20/20 07:30 Pulse 78 09/20/20 07:30 Resp 24 H 09/20/20 07:30 BP 128/63 09/20/20 07:30 Pulse Ox 94 L 09/20/20 07:30 Weight: 162 lb 12.8 oz - Exam General: Alert, Oriented (person), Cooperative. No: Mild Distress HEENT: PERRLA, Conjunctiva Clear, EOMI, Hearing Intact Neck: Trachea Midline Lungs: Clear to Auscultation, Normal Respiratory Effort, Decreased Breath Sounds (RLL), Crackles (RLL). No: Wheezing Cardiovascular: Regular Rate, Regular Rhythm GI/Abdominal Exam: Normal Bowel Sounds, Soft, Non-Tender, No Distention (Female) Exam: Deferred Rectal (Female) Exam: Deferred Extremities: No Pedal Edema, Normal Capillary Refill Peripheral Pulses: 2+: Radial (L), Radial (R) - Patient Data Lab Results Last 24 hrs: Laboratory Results - last 24 hr 09/19/20 09/19/20 09/19/20 Range/Units 16:48 16:48 16:48 WBC 10.1 (3.0-10.3) x10-3/uL RBC 4.26 (3.60-5.20) x10(6)uL Hgb 12.5 (11.4-15.5) g/dL Hct 39.2 (34.2-48.2) % MCV 92.1 (76.7-100.5) fL MCH 29.4 (23.9-33.9) pg MCHC 31.9 (31.9-34.8) g/dL RDW 15.5 (12.3-16.5) % Plt Count 394 (151-488) x10(3)uL MPV 8.3 (7.1-12.4) fL Neut % (Auto) 88.7 H (30.8-76.2) % Lymph % (Auto) 5.6 L (18.4-52.1) % [place] % (Auto) 5.4 (4.4-15.7) % Eos % (Auto) 0.0 L (0.6-8.1) % Baso % (Auto) 0.3 (0.2-1.5) % Neut # (Auto) 8.9 H (1.5-6.3) x10-3/uL Lymph # (Auto) 0.6 L (1.0-4.4) x10-3/uL [place] # (Auto) 0.5 (0.3-1.0) x10-3/uL Eos # (Auto) 0.0 (0.0-0.8) x10-3/uL Baso # (Auto) 0.0 (0.0-0.1) x10-3/uL PT (9.0-11.1) sec INR (1.00-1.24) APTT (24.4-33.2) SECONDS Sodium 135 (135-145) mmol/L Potassium 4.0 (3.5-5.3) mmol/L Chloride 98 L (100-110) mmol/L Carbon Dioxide 24 (21-32) mmol/L BUN 34 H (7-18) mg/dL Creatinine 1.2 H (0.55-1.02) mg/dL Est Cr Clr Drug Dosing 29.06 mL/min Estimated GFR (MDRD) 43 L (>60) BUN/Creatinine Ratio 28.3 H (9-20) Glucose 194 H (80-116) mg/dL Lactic Acid (0.4-2.0) mmol/L Calcium 9.4 (8.6-10.2) mg/dL Total Bilirubin 0.4 (0.1-1.3) mg/dL AST 81 H D (5-25) IU/L ALT 90 H D (12-36) U/L Alkaline Phosphatase 545 H (56-112) IU/L Troponin I 2703.5 H* (4.0-60.3) pg/mL Total Protein 7.9 (6.0-8.0) g/dL Albumin 3.1 L (3.2-4.6) g/dL Globulin 4.8 g/dL Albumin/Globulin Ratio 0.7 Urine Color (YELLOW) Urine Appearance (CLEAR) Urine pH (5.0-6.5) Ur Specific Overton (1.010-1.025) Urine Protein (NEGATIVE) mg/dL Urine Glucose (UA) (NORMAL) mg/dL Urine Ketones (NEGATIVE) mg/dL Urine Occult Blood (NEGATIVE) Urine Nitrite (NEGATIVE) Urine Bilirubin (NEGATIVE) Urine Urobilinogen (NEGATIVE) mg/dL Ur Leukocyte Esterase (NEGATIVE) Urine RBC (0-5) Urine WBC (0-5) Ur Squamous Epith Cells (NS,R,O) Amorphous Sediment Urine Bacteria (NS) Urine Mucus (NS) SARS-CoV-2 RNA (MARKUS) (NEGATIVE) 09/19/20 09/19/20 09/19/20 Range/Units 16:48 16:48 17:30 WBC (3.0-10.3) x10-3/uL RBC (3.60-5.20) x10(6)uL Hgb (11.4-15.5) g/dL Hct (34.2-48.2) % MCV (76.7-100.5) fL MCH (23.9-33.9) pg MCHC (31.9-34.8) g/dL RDW (12.3-16.5) % Plt Count (151-488) x10(3)uL MPV (7.1-12.4) fL Neut % (Auto) (30.8-76.2) % Lymph % (Auto) (18.4-52.1) % Sheridan % (Auto) (4.4-15.7) % Eos % (Auto) (0.6-8.1) % Baso % (Auto) (0.2-1.5) % Neut # (Auto) (1.5-6.3) x10-3/uL Lymph # (Auto) (1.0-4.4) x10-3/uL Sheridan # (Auto) (0.3-1.0) x10-3/uL Eos # (Auto) (0.0-0.8) x10-3/uL Baso # (Auto) (0.0-0.1) x10-3/uL PT 10.9 (9.0-11.1) sec INR 1.01 (1.00-1.24) APTT 24.3 L (24.4-33.2) SECONDS Sodium (135-145) mmol/L Potassium (3.5-5.3) mmol/L Chloride (100-110) mmol/L Carbon Dioxide (21-32) mmol/L BUN (7-18) mg/dL Creatinine (0.55-1.02) mg/dL Est Cr Clr Drug Dosing mL/min Estimated GFR (MDRD) (>60) BUN/Creatinine Ratio (9-20) Glucose (80-116) mg/dL Lactic Acid 3.8 H* (0.4-2.0) mmol/L Calcium (8.6-10.2) mg/dL Total Bilirubin (0.1-1.3) mg/dL AST (5-25) IU/L ALT (12-36) U/L Alkaline Phosphatase (56-112) IU/L Troponin I (4.0-60.3) pg/mL Total Protein (6.0-8.0) g/dL Albumin (3.2-4.6) g/dL Globulin g/dL Albumin/Globulin Ratio Urine Color Yellow (YELLOW) Urine Appearance Cloudy (CLEAR) Urine pH 5.0 (5.0-6.5) Ur Specific Overton 1.005 L (1.010-1.025) Urine Protein Negative (NEGATIVE) mg/dL Urine Glucose (UA) Normal (NORMAL) mg/dL Urine Ketones 15 H (NEGATIVE) mg/dL Urine Occult Blood Negative (NEGATIVE) Urine Nitrite Negative (NEGATIVE) Urine Bilirubin Negative (NEGATIVE) Urine Urobilinogen Normal (NEGATIVE) mg/dL Ur Leukocyte Esterase Moderate H (NEGATIVE) Urine RBC 0-5 (0-5) Urine WBC 10-20 H (0-5) Ur Squamous Epith Cells Few H (NS,R,O) Amorphous Sediment Moderate Urine Bacteria Moderate H (NS) Urine Mucus Few H (NS) SARS-CoV-2 RNA (MARKUS) (NEGATIVE) 09/19/20 09/19/20 09/19/20 Range/Units 18:15 19:11 19:11 WBC (3.0-10.3) x10-3/uL RBC (3.60-5.20) x10(6)uL Hgb (11.4-15.5) g/dL Hct (34.2-48.2) % MCV (76.7-100.5) fL MCH (23.9-33.9) pg MCHC (31.9-34.8) g/dL RDW (12.3-16.5) % Plt Count (151-488) x10(3)uL MPV (7.1-12.4) fL Neut % (Auto) (30.8-76.2) % Lymph % (Auto) (18.4-52.1) % Sheridan % (Auto) (4.4-15.7) % Eos % (Auto) (0.6-8.1) % Baso % (Auto) (0.2-1.5) % Neut # (Auto) (1.5-6.3) x10-3/uL Lymph # (Auto) (1.0-4.4) x10-3/uL Sheridan # (Auto) (0.3-1.0) x10-3/uL Eos # (Auto) (0.0-0.8) x10-3/uL Baso # (Auto) (0.0-0.1) x10-3/uL PT (9.0-11.1) sec INR (1.00-1.24) APTT (24.4-33.2) SECONDS Sodium (135-145) mmol/L Potassium (3.5-5.3) mmol/L Chloride (100-110) mmol/L Carbon Dioxide (21-32) mmol/L BUN (7-18) mg/dL Creatinine (0.55-1.02) mg/dL Est Cr Clr Drug Dosing mL/min Estimated GFR (MDRD) (>60) BUN/Creatinine Ratio (9-20) Glucose (80-116) mg/dL Lactic Acid 2.5 H* (0.4-2.0) mmol/L Calcium (8.6-10.2) mg/dL Total Bilirubin (0.1-1.3) mg/dL AST (5-25) IU/L ALT (12-36) U/L Alkaline Phosphatase (56-112) IU/L Troponin I 2723.7 H* (4.0-60.3) pg/mL Total Protein (6.0-8.0) g/dL Albumin (3.2-4.6) g/dL Globulin g/dL Albumin/Globulin Ratio Urine Color (YELLOW) Urine Appearance (CLEAR) Urine pH (5.0-6.5) Ur Specific Overton (1.010-1.025) Urine Protein (NEGATIVE) mg/dL Urine Glucose (UA) (NORMAL) mg/dL Urine Ketones (NEGATIVE) mg/dL Urine Occult Blood (NEGATIVE) Urine Nitrite (NEGATIVE) Urine Bilirubin (NEGATIVE) Urine Urobilinogen (NEGATIVE) mg/dL Ur Leukocyte Esterase (NEGATIVE) Urine RBC (0-5) Urine WBC (0-5) Ur Squamous Epith Cells (NS,R,O) Amorphous Sediment Urine Bacteria (NS) Urine Mucus (NS) SARS-CoV-2 RNA (MARKUS) Negative (NEGATIVE) 09/19/20 09/20/20 09/20/20 Range/Units 23:35 04:10 04:10 WBC 7.2 (3.0-10.3) x10-3/uL RBC 3.50 L (3.60-5.20) x10(6)uL Hgb 10.2 L (11.4-15.5) g/dL Hct 32.4 L (34.2-48.2) % MCV 92.5 (76.7-100.5) fL MCH 29.1 (23.9-33.9) pg MCHC 31.5 L (31.9-34.8) g/dL RDW 15.6 (12.3-16.5) % Plt Count 312 (151-488) x10(3)uL MPV 8.5 (7.1-12.4) fL Neut % (Auto) 74.6 (30.8-76.2) % Lymph % (Auto) 14.7 L (18.4-52.1) % Sheridan % (Auto) 9.5 (4.4-15.7) % Eos % (Auto) 0.5 L (0.6-8.1) % Baso % (Auto) 0.7 (0.2-1.5) % Neut # (Auto) 5.4 (1.5-6.3) x10-3/uL Lymph # (Auto) 1.1 (1.0-4.4) x10-3/uL Sheridan # (Auto) 0.7 (0.3-1.0) x10-3/uL Eos # (Auto) 0.0 (0.0-0.8) x10-3/uL Baso # (Auto) 0.1 (0.0-0.1) x10-3/uL PT (9.0-11.1) sec INR (1.00-1.24) APTT 80.6 H* (24.4-33.2) SECONDS Sodium (135-145) mmol/L Potassium (3.5-5.3) mmol/L Chloride (100-110) mmol/L Carbon Dioxide (21-32) mmol/L BUN (7-18) mg/dL Creatinine (0.55-1.02) mg/dL Est Cr Clr Drug Dosing mL/min Estimated GFR (MDRD) (>60) BUN/Creatinine Ratio (9-20) Glucose (80-116) mg/dL Lactic Acid (0.4-2.0) mmol/L Calcium (8.6-10.2) mg/dL Total Bilirubin (0.1-1.3) mg/dL AST (5-25) IU/L ALT (12-36) U/L Alkaline Phosphatase (56-112) IU/L Troponin I 2197.0 H* (4.0-60.3) pg/mL Total Protein (6.0-8.0) g/dL Albumin (3.2-4.6) g/dL Globulin g/dL Albumin/Globulin Ratio Urine Color (YELLOW) Urine Appearance (CLEAR) Urine pH (5.0-6.5) Ur Specific Overton (1.010-1.025) Urine Protein (NEGATIVE) mg/dL Urine Glucose (UA) (NORMAL) mg/dL Urine Ketones (NEGATIVE) mg/dL Urine Occult Blood (NEGATIVE) Urine Nitrite (NEGATIVE) Urine Bilirubin (NEGATIVE) Urine Urobilinogen (NEGATIVE) mg/dL Ur Leukocyte Esterase (NEGATIVE) Urine RBC (0-5) Urine WBC (0-5) Ur Squamous Epith Cells (NS,R,O) Amorphous Sediment Urine Bacteria (NS) Urine Mucus (NS) SARS-CoV-2 RNA (MARKUS) (NEGATIVE) 09/20/20 09/20/20 09/20/20 Range/Units 04:10 04:10 04:10 WBC (3.0-10.3) x10-3/uL RBC (3.60-5.20) x10(6)uL Hgb (11.4-15.5) g/dL Hct (34.2-48.2) % MCV (76.7-100.5) fL MCH (23.9-33.9) pg MCHC (31.9-34.8) g/dL RDW (12.3-16.5) % Plt Count (151-488) x10(3)uL MPV (7.1-12.4) fL Neut % (Auto) (30.8-76.2) % Lymph % (Auto) (18.4-52.1) % Sheridan % (Auto) (4.4-15.7) % Eos % (Auto) (0.6-8.1) % Baso % (Auto) (0.2-1.5) % Neut # (Auto) (1.5-6.3) x10-3/uL Lymph # (Auto) (1.0-4.4) x10-3/uL [place]idan # (Auto) (0.3-1.0) x10-3/uL Eos # (Auto) (0.0-0.8) x10-3/uL Baso # (Auto) (0.0-0.1) x10-3/uL PT (9.0-11.1) sec INR (1.00-1.24) APTT 59.8 H (24.4-33.2) SECONDS Sodium 138 (135-145) mmol/L Potassium 3.7 (3.5-5.3) mmol/L Chloride 104 D (100-110) mmol/L Carbon Dioxide 22 (21-32) mmol/L BUN 28 H (7-18) mg/dL Creatinine 0.9 (0.55-1.02) mg/dL Est Cr Clr Drug Dosing 40.38 mL/min Estimated GFR (MDRD) 59 L (>60) BUN/Creatinine Ratio 31.1 H (9-20) Glucose 155 H (80-116) mg/dL Lactic Acid 1.3 (0.4-2.0) mmol/L Calcium 8.2 L (8.6-10.2) mg/dL Total Bilirubin 0.4 (0.1-1.3) mg/dL AST 68 H D (5-25) IU/L ALT 69 H D (12-36) U/L Alkaline Phosphatase 408 H (56-112) IU/L Troponin I (4.0-60.3) pg/mL Total Protein 6.2 (6.0-8.0) g/dL Albumin 2.4 L (3.2-4.6) g/dL Globulin 3.8 g/dL Albumin/Globulin Ratio 0.6 Urine Color (YELLOW) Urine Appearance (CLEAR) Urine pH (5.0-6.5) Ur Specific Overton (1.010-1.025) Urine Protein (NEGATIVE) mg/dL Urine Glucose (UA) (NORMAL) mg/dL Urine Ketones (NEGATIVE) mg/dL Urine Occult Blood (NEGATIVE) Urine Nitrite (NEGATIVE) Urine Bilirubin (NEGATIVE) Urine Urobilinogen (NEGATIVE) mg/dL Ur Leukocyte Esterase (NEGATIVE) Urine RBC (0-5) Urine WBC (0-5) Ur Squamous Epith Cells (NS,R,O) Amorphous Sediment Urine Bacteria (NS) Urine Mucus (NS) SARS-CoV-2 RNA (MARKUS) (NEGATIVE) Result Diagrams: 09/20/20 04:10 09/20/20 04:10 Jhoan Results Last 24 hrs: Microbiology 09/19/20 18:15 Influenza Type A Antigen Screen - Final Nasopharyngeal Swab NEGATIVE INFLUENZA A VIRUS AG REFERENCE RANGE: NEGATIVE Influenza Type B Antigen Screen - Final NEGATIVE INFLUENZA B VIRUS AG REFERENCE RANGE: NEGATIVE Sepsis Event Note - Evaluation Sepsis Screening Result: No Definite Risk - Focused Exam Vital Signs: Vital Signs Temp Pulse Resp BP Pulse Ox 09/20/20 07:30 98.5 F 78 24 H 128/63 94 L 09/20/20 00:00 97.8 F 88 18 110/64 97 *Q Meaningful Use (ADM) - VTE Risk Assess *Q Each Risk Factor Represents 1 Point: Medical Patient Currently on Bedrest Total Score 1 Point Risk Factors: 1 Each Risk Factor Represents 2 Points: None Total Score 2 Point Risk Factors: 0 Each Risk Factor Represents 3 Points: Age 75 Years or Greater Total Score 3 Point Risk Factors: 3 Each Risk Factor Represents 5 Points: None Total Score 5 Point Risk Factors: 0 Venous Thromboembolism Risk Factor Score *Q: 4 - Problem List (1) NSTEMI (non-ST elevated myocardial infarction) SNOMED Code(s): 05276879 ICD Code: I21.4 - NON-ST ELEVATION (NSTEMI) MYOCARDIAL INFARCTION Status: Acute Current Visit: Yes (2) Cholecystitis with cholelithiasis SNOMED Code(s): 932476074, 960101651 ICD Code: K80.10 - CALCULUS OF GALLBLADDER W CHRONIC CHOLECYST W/O OBSTRUCTION Status: Acute Current Visit: Yes Qualifiers: Cholelithiasis location: gallbladder Cholecystitis acuity: acute Biliary obstruction: without biliary obstruction Qualified Code(s): K80.00 - Calculus of gallbladder with acute cholecystitis without obstruction (3) UTI (urinary tract infection) SNOMED Code(s): 13947117 ICD Code: N39.0 - URINARY TRACT INFECTION, SITE NOT SPECIFIED Status: Acute Current Visit: No (4) Elevated lactic acid level SNOMED Code(s): 3590924 ICD Code: R79.89 - OTHER SPECIFIED ABNORMAL FINDINGS OF BLOOD CHEMISTRY Status: Acute Current Visit: Yes (5) DM2 (diabetes mellitus, type 2) SNOMED Code(s): 60960643 ICD Code: E11.9 - TYPE 2 DIABETES MELLITUS WITHOUT COMPLICATIONS Status: Chronic Current Visit: No Problem Details: borderline, does not take any medications. (6) H/O: CVA (cerebrovascular accident) SNOMED Code(s): 085336386 ICD Code: Z86.73 - PRSNL HX OF TIA (TIA), AND CEREB INFRC W/O RESID DEFICITS Status: Chronic Current Visit: No (7) HTN (hypertension) SNOMED Code(s): 59513354 ICD Code: I10 - ESSENTIAL (PRIMARY) HYPERTENSION Status: Chronic Current Visit: No Qualifiers: Hypertension type: essential hypertension Qualified Code(s): I10 - Essential (primary) hypertension (8) DNR (do not resuscitate) Status: Acute Current Visit: Yes (9) Palliative care status SNOMED Code(s): 082775560 ICD Code: Z51.5 - ENCOUNTER FOR PALLIATIVE CARE Status: Chronic Current Visit: Yes (10) Status post administration of all doses of COVID-19 vaccine series SNOMED Code(s): 923381798, 943584999 ICD Code: Z92.29 - PERSONAL HISTORY OF OTHER DRUG THERAPY Status: Acute Current Visit: Yes Problem List Initiated/Reviewed/Updated: Yes Orders Last 24hrs: Active Orders 24 hr Category Date Time Status Admission Status [Patient Status] [ADT] Routine ADT 09/19/20 19:01 Active Bedrest Bedside Commode [RC] ASDIRECTED Care 09/19/20 19:22 Active Blood Glucose Check, Bedside [RC] QIDACANDBED Care 09/19/20 19:22 Active EKG Documentation Completion [RC] ASDIRECTED Care 09/19/20 17:20 Active Height and Weight [RC] DAILY Care 09/19/20 19:22 Active Intake and Output [RC] QSHIFT Care 09/19/20 19:22 Active Notify Provider Vital Signs [RC] ASDIRECTED Care 09/19/20 19:23 Active Oxygen Therapy [RC] PRN Care 09/19/20 19:22 Active Pulse Oximetry [RC] PRN Care 09/19/20 19:22 Active RT Aerosol Therapy [RC] ASDIRECTED Care 09/19/20 19:43 Active VTE/DVT Education [RC] Per Unit Routine Care 09/19/20 19:22 Active Vital Signs [RC] QSHIFT Care 09/19/20 19:22 Active BASIC METABOLIC PANEL,BMP [CHEM] Routine Lab 09/21/20 06:00 Ordered CBC WITH AUTO DIFF [HEME] Routine Lab 09/21/20 06:00 Ordered CULTURE BLOOD [BC] Urgent Lab 09/19/20 16:48 Received CULTURE BLOOD [BC] Urgent Lab 09/19/20 16:55 Received CULTURE URINE [RM] Stat Lab 09/19/20 17:30 Received PTT,PARTIAL THROMBOPLSTIN TIME [COAG] Routine Lab 09/20/20 10:00 Ordered Acetaminophen [TylenoL] Med 09/19/20 19:40 Active 650 mg PO Q4H PRN Albuterol [Proventil Neb Soln] Med 09/19/20 19:40 Active 2.5 mg INH TID PRN Aspirin Med 09/20/20 09:00 Active 81 mg PO DAILY Cefepime [Maxipime] Med 09/20/20 08:00 Active 2 gm IVPUSH Q12H Clopidogrel [Plavix] Med 09/20/20 09:00 Active 75 mg PO DAILY Gabapentin [Neurontin] Med 09/20/20 09:00 Active 100 mg PO TID Heparin Sodium/0.45% NaCl [Heparin 25,000 Units in 1/2 Med 09/19/20 19:00 Active NS 500 ML] 25,000 units in 500 ml IV TITRATE Ondansetron [Zofran] Med 09/19/20 19:22 Active 4 mg IV Q8H PRN Pantoprazole [ProTONIX IV] Med 09/19/20 20:00 Active 40 mg IVPUSH Q24H Piperacillin/Tazobactam [Zosyn] 3.375 gm Med 09/20/20 00:30 Active Sodium Chloride 0.9% [Normal Saline] 50 ml IV Q6H Sodium Chloride 0.9% [Normal Saline] 1,000 ml Med 09/19/20 19:15 Active IV ASDIRECTED Blood Culture x2 Reflex Set [OM.PC] Urgent Oth 09/19/20 16:35 Ordered Isolation [COMM] Routine Oth 09/19/20 16:37 Ordered Resuscitation Status Routine Resus Stat 09/19/20 19:22 Ordered EKG 12 Lead [EK] Stat Ther 09/19/20 17:19 Ordered Medication Orders Acetaminophen (Tylenol) 650 mg PO Q4H PRN PRN Reason: Fever Albuterol (Proventil Neb Soln) 2.5 mg INH TID PRN PRN Reason: Dyspnea Aspirin (Aspirin) 81 mg PO DAILY [facility] Cefepime HCl (Maxipime) 2 gm IVPUSH Q12H [facility] Last Admin: 09/20/20 08:43 Dose: 2 gm Documented by: REY Clopidogrel Bisulfate (Plavix) 75 mg PO DAILY [facility] Last Admin: 09/20/20 08:44 Dose: 75 mg Documented by: REY Gabapentin (Neurontin) 100 mg PO TID [facility] Last Admin: 09/20/20 09:00 Dose: 100 mg Documented by: REY Heparin Sodium/Sodium Chloride (Heparin 25,000 Units In 1/2 Ns 500 Ml) 25,000 units in 500 mls @ 17.527 mls/hr IV TITRATE DEO; Protocol Stop: 09/21/20 19:30 Last Titration: 09/20/20 00:02 Dose: 10 units/kg/hr, 14.606 mls/hr Documented by: TRAV Cosigned by: [email or web address] Admin: 09/19/20 19:34 Dose: 12 units/kg/hr, 17.527 mls/hr Documented by: TRAV Cosigned by: BELTRAN Sodium Chloride (Normal Saline) 1,000 mls @ 100 mls/hr IV ASDIRECTED [facility] Last Infusion: 09/20/20 02:20 Dose: 100 mls/hr Documented by: Admin: 09/20/20 02:20 Dose: 150 mls/hr Documented by: Infusion: 09/20/20 01:46 Dose: 150 mls/hr Documented by: Admin: 09/19/20 19:05 Dose: 150 mls/hr Documented by: DAVID Piperacillin Sod/Tazobactam (Sod 3.375 gm/ Sodium Chloride) 50 mls @ 100 mls/hr IV Q6H [facility] Last Admin: 09/20/20 06:42 Dose: 100 mls/hr Documented by: Admin: 09/20/20 01:17 Dose: 100 mls/hr Documented by: TRAV Ondansetron HCl (Zofran) 4 mg IV Q8H PRN PRN Reason: Nausea/Vomiting Pantoprazole Sodium (Protonix Iv) 40 mg IVPUSH Q24H [facility] Last Admin: 09/19/20 22:14 Dose: 40 mg Documented by: TRAV Assessment/Plan Comment:: 1. Admit for NSTEMI-medical management, Cholecystitis, UTI, [facility] 2. NSTEMI: Heparin drip per protocol for 48 hours, received loading Plavix dose 300 mg last night, 75 mg daily start today along with Aspirin 81 mg chewable daily. 3. Cholecystitis/UTI: blood culture & urine culture pending. WBC 7.2 today. Lactic acid 1.3. Cefepime 2g IV q12h, Zosyn 3.375 g IV q6h to cover both. Repeat labs tomorrow. 4. Diet: Pureed to mechanical as tolerated. 5. Activity: bedrest, full body lift. 6. DVT prophylaxis: Heparin drip. 7. CODE STATUS: DNR/DNI, family wanted conservative measures. - Mortality Measure Prognosis:: Poor
[2020-09-20] MEDS: Aspirin 81 MG Tab.Chew PO SCH (10:26)
[2020-09-20] MEDS: Ondansetron 4 MG/2 ML SDV IV PRN (12:33)
[2020-09-20] MEDS: Pantoprazole 40 MG Vial IVPUSH SCH (20:34)
[2020-09-21] MEDS: Piperacillin/Tazobactam 3.375 GM in Sodium Chloride 0.9% 50 ML IV SCH ×4 (00:39→18:03)
[2020-09-21] MEDS: Heparin Sodium/0.45% NaCl 25,000 UNITS/500 ML BAG IV SCH (05:13)
[2020-09-21] MEDS: Ondansetron 4 MG/2 ML SDV IV PRN (05:31)
[2020-09-21] MEDS: Cefepime 2 GM Vial IVPUSH SCH (08:30)
[2020-09-21] MEDS ORDERED: Furosemide 40 MG/4 ML VIAL IVPUSH ONE (09:34)
[2020-09-21] MEDS: Sodium Chloride 0.9% 10 ML Syringe FLUSH SCH (09:51)
[2020-09-21] MEDS: Aspirin 81 MG Tab.Chew PO SCH (09:53)
[2020-09-21] MEDS: Clopidogrel 75 MG Tab PO SCH (09:53)
[2020-09-21] MEDS: Gabapentin 100 MG Cap PO SCH ×3 (09:56→20:27)
--- NOTE | 2020-09-21 11:03 | PCM.PN ---
- General Info Date of Service: 09/21/20 Subjective Update: Filomena said her belly does hurt today, having more wet respirations. Denies chest pain. She is a full body lift and wears incontinent briefs. No fevers. - Patient Data Vitals - Most Recent: Last Vital Signs Temp 98.2 F 09/21/20 08:00 Pulse 85 09/21/20 08:00 Resp 30 H 09/21/20 08:00 BP 96/58 L 09/21/20 08:00 Pulse Ox 85 L 09/21/20 08:00 Weight - Most Recent: 167 lb 14.4 oz I&O - Last 24 Hours: Intake & Output 09/20/20 09/21/20 09/21/20 22:59 06:59 14:59 Intake Total 550 985 Balance 550 985 Lab Results Last 24 Hours: Laboratory Results - last 24 hr 09/20/20 09/20/20 09/20/20 Range/Units 07:09 12:03 18:37 WBC (3.0-10.3) x10-3/uL RBC (3.60-5.20) x10(6)uL Hgb (11.4-15.5) g/dL Hct (34.2-48.2) % MCV (76.7-100.5) fL MCH (23.9-33.9) pg MCHC (31.9-34.8) g/dL RDW (12.3-16.5) % Plt Count (151-488) x10(3)uL MPV (7.1-12.4) fL Neut % (Auto) (30.8-76.2) % Lymph % (Auto) (18.4-52.1) % [place] % (Auto) (4.4-15.7) % Eos % (Auto) (0.6-8.1) % Baso % (Auto) (0.2-1.5) % Neut # (Auto) (1.5-6.3) x10-3/uL Lymph # (Auto) (1.0-4.4) x10-3/uL [place] # (Auto) (0.3-1.0) x10-3/uL Eos # (Auto) (0.0-0.8) x10-3/uL Baso # (Auto) (0.0-0.1) x10-3/uL Sodium (135-145) mmol/L Potassium (3.5-5.3) mmol/L Chloride (100-110) mmol/L Carbon Dioxide (21-32) mmol/L BUN (7-18) mg/dL Creatinine (0.55-1.02) mg/dL Est Cr Clr Drug Dosing mL/min Estimated GFR (MDRD) (>60) BUN/Creatinine Ratio (9-20) Glucose (80-116) mg/dL POC Glucose 150 H 144 H 153 H (74-100) mg/dL Calcium (8.6-10.2) mg/dL Troponin I (4.0-60.3) pg/mL 09/21/20 09/21/20 09/21/20 Range/Units 06:45 06:45 06:45 WBC 7.8 (3.0-10.3) x10-3/uL RBC 3.43 L (3.60-5.20) x10(6)uL Hgb 10.1 L (11.4-15.5) g/dL Hct 32.1 L (34.2-48.2) % MCV 93.5 (76.7-100.5) fL MCH 29.4 (23.9-33.9) pg MCHC 31.5 L (31.9-34.8) g/dL RDW 16.2 (12.3-16.5) % Plt Count 320 (151-488) x10(3)uL MPV 8.4 (7.1-12.4) fL Neut % (Auto) 70.8 (30.8-76.2) % Lymph % (Auto) 15.1 L (18.4-52.1) % [place] % (Auto) 12.3 (4.4-15.7) % Eos % (Auto) 1.1 (0.6-8.1) % Baso % (Auto) 0.7 (0.2-1.5) % Neut # (Auto) 5.5 (1.5-6.3) x10-3/uL Lymph # (Auto) 1.2 (1.0-4.4) x10-3/uL [place] # (Auto) 1.0 (0.3-1.0) x10-3/uL Eos # (Auto) 0.1 (0.0-0.8) x10-3/uL Baso # (Auto) 0.1 (0.0-0.1) x10-3/uL Sodium 142 (135-145) mmol/L Potassium 3.6 (3.5-5.3) mmol/L Chloride 109 D (100-110) mmol/L Carbon Dioxide 21 (21-32) mmol/L BUN 22 H (7-18) mg/dL Creatinine 0.9 (0.55-1.02) mg/dL Est Cr Clr Drug Dosing 40.38 mL/min Estimated GFR (MDRD) 59 L (>60) BUN/Creatinine Ratio 24.4 H (9-20) Glucose 148 H (80-116) mg/dL POC Glucose (74-100) mg/dL Calcium 8.5 L (8.6-10.2) mg/dL Troponin I 697.5 H* (4.0-60.3) pg/mL Jhoan Results Last 24 Hours: Microbiology 09/19/20 16:55 Aerobic Blood Culture - Preliminary Blood - Venous - Lab Draw NO GROWTH AFTER 1 DAY Anaerobic Blood Culture - Preliminary NO GROWTH AFTER 1 DAY 09/19/20 16:48 Aerobic Blood Culture - Preliminary Blood - Venous NO GROWTH AFTER 1 DAY Anaerobic Blood Culture - Preliminary NO GROWTH AFTER 1 DAY 09/19/20 17:30 Urine Culture - Preliminary Urine, Catheterized Gram Positive Cocci Med Orders - Current: Current Medications Acetaminophen (Tylenol) 650 mg PO Q4H PRN PRN Reason: Fever Albuterol (Proventil Neb Soln) 2.5 mg INH TID PRN PRN Reason: Dyspnea Aspirin (Aspirin) 81 mg PO DAILY [facility] Last Admin: 09/21/20 09:53 Dose: 81 mg Documented by: Ceftriaxone Sodium (Rocephin) 1 gm IVPUSH Q24H [facility] Clopidogrel Bisulfate (Plavix) 75 mg PO DAILY [facility] Last Admin: 09/21/20 09:53 Dose: 75 mg Documented by: Gabapentin (Neurontin) 100 mg PO TID [facility] Last Admin: 09/21/20 09:56 Dose: 100 mg Documented by: Heparin Sodium/Sodium Chloride (Heparin 25,000 Units In 1/2 Ns 500 Ml) 25,000 units in 500 mls @ 17.527 mls/hr IV TITRATE [facility]; Protocol Stop: 09/21/20 19:30 Last Admin: 09/21/20 05:13 Dose: 10 units/kg/hr, 14.606 mls/hr Documented by: Doxycycline Hyclate 100 mg/ (Sodium Chloride) 100 mls @ 100 mls/hr IV Q12H [facility] Ondansetron HCl (Zofran) 4 mg IV Q8H PRN PRN Reason: Nausea/Vomiting Last Admin: 09/21/20 05:31 Dose: 4 mg Documented by: Pantoprazole Sodium (Protonix Iv) 40 mg IVPUSH Q24H [facility] Last Admin: 09/20/20 20:34 Dose: 40 mg Documented by: Sodium Chloride (Saline Flush) 10 ml FLUSH DAILY [facility] Last Admin: 09/21/20 09:51 Dose: 10 ml Documented by: Discontinued Medications Aspirin (Halfprin) 81 mg PO DAILY [facility] Cefepime HCl (Maxipime) 2 gm IVPUSH ONETIME ONE Stop: 09/19/20 18:58 Last Admin: 09/19/20 19:24 Dose: 2 gm Documented by: Cefepime HCl (Maxipime) 2 gm IVPUSH Q12H [facility] Cefepime HCl (Maxipime) 2 gm IVPUSH Q12H [facility] Last Admin: 09/21/20 08:30 Dose: 2 gm Documented by: Clopidogrel Bisulfate (Plavix) 300 mg PO ONETIME ONE Stop: 09/19/20 19:15 Last Admin: 09/19/20 19:22 Dose: 300 mg Documented by: Furosemide (Lasix) 40 mg IVPUSH NOW ONE Stop: 09/21/20 09:35 Last Admin: 09/21/20 10:41 Dose: 40 mg Documented by: Heparin Sodium (Porcine) (Heparin Sodium) 3,650 units IVPUSH ONETIME ONE Stop: 09/19/20 18:51 Last Admin: 09/19/20 19:33 Dose: 3,650 units Documented by: Sodium Chloride (Normal Saline) 500 mls @ 500 mls/hr IV .BOLUS ONE Stop: 09/19/20 17:37 Last Admin: 09/19/20 16:10 Dose: 500 mls/hr Documented by: Sodium Chloride (Normal Saline) 1,000 mls @ 999 mls/hr IV .BOLUS ONE Stop: 09/19/20 18:21 Last Admin: 09/19/20 18:00 Dose: 999 mls/hr Documented by: Piperacillin Sod/Tazobactam (Sod 3.375 gm/ Sodium Chloride) 50 mls @ 100 mls/hr IV .ONCE ONE Stop: 09/19/20 18:11 Last Admin: 09/19/20 18:07 Dose: 100 mls/hr Documented by: Sodium Chloride (Normal Saline) 1,000 mls @ 100 mls/hr IV ASDIRECTED [facility] Last Admin: 09/20/20 23:36 Dose: 100 mls/hr Documented by: Piperacillin Sod/Tazobactam (Sod 3.375 gm/ Sodium Chloride) 50 mls @ 100 mls/hr IV Q6H [facility] Last Admin: 09/21/20 05:31 Dose: 100 mls/hr Documented by: Iopamidol (Isovue-370 (76%)) 100 ml IV ONETIME ONE Stop: 09/19/20 16:51 Last Admin: 09/19/20 17:18 Dose: 76 ml Documented by: - Exam General: Alert, Oriented (person), Cooperative, No Acute Distress Lungs: Normal Respiratory Effort, Decreased Breath Sounds, Crackles (BLL, RML). No: Wheezing Cardiovascular: Regular Rate, Regular Rhythm GI/Abdominal Exam: Normal Bowel Sounds, Soft, No Distention, Tender (diffuse). No: Guarding, Rigid, Rebound (Female) Exam: Deferred Extremities: No Pedal Edema Peripheral Pulses: 2+: Radial (L), Radial (R) Sepsis Event Note - Evaluation Sepsis Screening Result: No Definite Risk - Focused Exam Vital Signs: Vital Signs Temp Pulse Resp BP Pulse Ox 09/21/20 08:00 98.2 F 85 30 H 96/58 L 85 L 09/20/20 23:20 97.4 F 78 18 101/62 99 - Problem List & Annotations (1) NSTEMI (non-ST elevated myocardial infarction) SNOMED Code(s): 71233911 Code(s): I21.4 - NON-ST ELEVATION (NSTEMI) MYOCARDIAL INFARCTION Status: Acute Current Visit: Yes (2) Cholecystitis with cholelithiasis SNOMED Code(s): 863447066, 078746248 Code(s): K80.10 - CALCULUS OF GALLBLADDER W CHRONIC CHOLECYST W/O OBSTRUCTION Status: Acute Current Visit: Yes Qualifiers: Cholelithiasis location: gallbladder Cholecystitis acuity: acute Biliary obstruction: without biliary obstruction Qualified Code(s): K80.00 - Calculus of gallbladder with acute cholecystitis without obstruction (3) UTI (urinary tract infection) SNOMED Code(s): 43262762 Code(s): N39.0 - URINARY TRACT INFECTION, SITE NOT SPECIFIED Status: Acute Current Visit: No (4) Elevated lactic acid level SNOMED Code(s): 1429551 Code(s): R79.89 - OTHER SPECIFIED ABNORMAL FINDINGS OF BLOOD CHEMISTRY Status: Acute Current Visit: Yes (5) DM2 (diabetes mellitus, type 2) SNOMED Code(s): 81772893 Code(s): E11.9 - TYPE 2 DIABETES MELLITUS WITHOUT COMPLICATIONS Status: Chronic Current Visit: No Annotation/Comment:: borderline, does not take any medications. (6) H/O: CVA (cerebrovascular accident) SNOMED Code(s): 124463412 Code(s): Z86.73 - PRSNL HX OF TIA (TIA), AND CEREB INFRC W/O RESID DEFICITS Status: Chronic Current Visit: No (7) HTN (hypertension) SNOMED Code(s): 11042295 Code(s): I10 - ESSENTIAL (PRIMARY) HYPERTENSION Status: Chronic Current Visit: No Qualifiers: Hypertension type: essential hypertension Qualified Code(s): I10 - Essential (primary) hypertension (8) DNR (do not resuscitate) Status: Acute Current Visit: Yes (9) Palliative care status SNOMED Code(s): 101364759 Code(s): Z51.5 - ENCOUNTER FOR PALLIATIVE CARE Status: Chronic Current Visit: Yes (10) Status post administration of all doses of COVID-19 vaccine series SNOMED Code(s): 364740572, 771426231 Code(s): Z92.29 - PERSONAL HISTORY OF OTHER DRUG THERAPY Status: Acute Current Visit: Yes - Problem List Review Problem List Initiated/Reviewed/Updated: Yes - My Orders Last 24 Hours: My Active Orders 09/20/20 Lunch Pureed Diet [DIET] 09/21/20 08:27 Convert IV to Peripheral Lock [Convert IV to Saline Lock] [OM.PC] Routine 09/21/20 09:45 Sodium Chloride 0.9% [Saline Flush] 10 ml FLUSH DAILY 09/21/20 10:20 PTT,PARTIAL THROMBOPLSTIN TIME [COAG] Routine 09/21/20 12:00 Doxycycline [Vibramycin] 100 mg Sodium Chloride 0.9% [Normal Saline] 100 ml IV Q12H 09/21/20 21:00 cefTRIAXone [Rocephin] 1 gm IVPUSH Q24H 09/22/20 06:00 BASIC METABOLIC PANEL,BMP [CHEM] Routine TROPONIN I [CHEM] Routine - Plan Plan:: 1. Admit for NSTEMI-medical management, Cholecystitis, UTI, s/p covid vaccination 2. NSTEMI: Heparin drip per protocol for 48 hours will discontinue tonight at 1930, received loading Plavix dose 300 mg 09/19, 75 mg daily start yesterday along with Aspirin 81 mg chewable daily. 3. Cholecystitis/UTI: blood culture: no growth, urine culture: GPC. WBC 7.8 today. Discontinued Cefepime, will add Bactrim DS bid for UTI, Zosyn 3.375 g IV q6h to cover health-care associated cholecystitis. Repeat labs tomorrow. 4. Diet: Pureed to mechanical as tolerated. 5. Activity: bedrest, full body lift. 6. DVT prophylaxis: Heparin drip discontinues tonight, on Plavix & ASA.
[2020-09-21] MEDS: Sulfamethoxazole/Trimethoprim 800-160 MG Tab PO SCH ×2 (11:40→21:31)
[2020-09-21] MEDS ORDERED: Doxycycline 100 MG in Sodium Chloride 0.9% 100 ML IV SCH (12:00)
[2020-09-21] MEDS: Saccharomyces Boulardii (Probiotic) 250 MG Cap PO SCH ×2 (17:30→20:14)
[2020-09-21] MEDS: Pantoprazole 40 MG Vial IVPUSH SCH (20:13)
[2020-09-21] MEDS: Camphor/Menthol 0.5-0.5% Lotion 222 ML Bottle TOP SCH (20:38)
[2020-09-21] MEDS ORDERED: cefTRIAXone 1 GM Vial IVPUSH SCH (21:00)
[2020-09-22] MEDS: Sodium Chloride 0.9% 10 ML Syringe FLUSH SCH ×3 (00:10→15:20)
[2020-09-22] MEDS: Piperacillin/Tazobactam 3.375 GM in Sodium Chloride 0.9% 50 ML IV SCH ×2 (00:10→06:00)
[2020-09-22] MEDS: Magnesium Oxide 400 MG Tab PO SCH (08:53)
[2020-09-22] MEDS: Aspirin 81 MG Tab.Chew PO SCH (08:53)
[2020-09-22] MEDS: Clopidogrel 75 MG Tab PO SCH (08:53)
[2020-09-22] MEDS: Saccharomyces Boulardii (Probiotic) 250 MG Cap PO SCH ×2 (08:53→20:27)
[2020-09-22] MEDS: Gabapentin 100 MG Cap PO SCH ×3 (08:55→20:29)
[2020-09-22] MEDS: Bumetanide 1 MG Tab PO SCH (09:08)
[2020-09-22] MEDS: Amoxicillin/Clavulanate K 875-125 MG Tab PO SCH ×2 (12:30→20:26)
--- NOTE | 2020-09-22 14:43 | PCM.PN ---
- General Info Date of Service: 09/22/20 Subjective Update: Filomena doing better today, had cup of coffee and all her pills in applesauce this morning which is improved. [place] had brought her chair over yesterday evening so she could sit up. She tolerated this well. Right side lungs are improved, still some crackles on left. She is on pureed to mechanical diet at [place] with no thickened liquids. Denies any abdominal pain. Diarrhea has improved. No edema. Son will be coming on Saturday. - Patient Data Vitals - Most Recent: Last Vital Signs Temp 98.3 F 09/22/20 08:00 Pulse 76 09/22/20 08:00 Resp 24 H 09/22/20 08:00 BP 118/64 09/22/20 08:00 Pulse Ox 90 L 09/22/20 08:00 Weight - Most Recent: 166 lb 6.4 oz I&O - Last 24 Hours: Intake & Output 09/21/20 09/22/20 09/22/20 22:59 06:59 14:59 Intake Total 172 103 500 Balance 172 103 500 Lab Results Last 24 Hours: Laboratory Results - last 24 hr 09/20/20 09/21/20 09/21/20 Range/Units 22:56 05:14 11:46 Sodium (135-145) mmol/L Potassium (3.5-5.3) mmol/L Chloride (100-110) mmol/L Carbon Dioxide (21-32) mmol/L BUN (7-18) mg/dL Creatinine (0.55-1.02) mg/dL Est Cr Clr Drug Dosing mL/min Estimated GFR (MDRD) (>60) BUN/Creatinine Ratio (9-20) Glucose (80-116) mg/dL POC Glucose 170 H 168 H 163 H (74-100) mg/dL Calcium (8.6-10.2) mg/dL Troponin I (4.0-60.3) pg/mL 09/21/20 09/21/20 09/22/20 Range/Units 17:49 21:30 06:25 Sodium 143 (135-145) mmol/L Potassium 3.3 L (3.5-5.3) mmol/L Chloride 108 (100-110) mmol/L Carbon Dioxide 22 (21-32) mmol/L BUN 22 H (7-18) mg/dL Creatinine 1.2 H (0.55-1.02) mg/dL Est Cr Clr Drug Dosing 30.28 mL/min Estimated GFR (MDRD) 43 L (>60) BUN/Creatinine Ratio 18.3 (9-20) Glucose 133 H (80-116) mg/dL POC Glucose 172 H 167 H (74-100) mg/dL Calcium 8.3 L (8.6-10.2) mg/dL Troponin I (4.0-60.3) pg/mL 09/22/20 09/22/20 Range/Units 06:25 12:32 Sodium (135-145) mmol/L Potassium (3.5-5.3) mmol/L Chloride (100-110) mmol/L Carbon Dioxide (21-32) mmol/L BUN (7-18) mg/dL Creatinine (0.55-1.02) mg/dL Est Cr Clr Drug Dosing mL/min Estimated GFR (MDRD) (>60) BUN/Creatinine Ratio (9-20) Glucose (80-116) mg/dL POC Glucose 150 H (74-100) mg/dL Calcium (8.6-10.2) mg/dL Troponin I 341.4 H* (4.0-60.3) pg/mL Jhoan Results Last 24 Hours: Microbiology 09/19/20 17:30 Urine Culture - Final Urine, Catheterized Gram Positive Cocci 09/19/20 16:48 Aerobic Blood Culture - Preliminary Blood - Venous NO GROWTH AFTER 2 DAYS Anaerobic Blood Culture - Preliminary NO GROWTH AFTER 2 DAYS 09/19/20 16:55 Aerobic Blood Culture - Preliminary Blood - Venous - Lab Draw NO GROWTH AFTER 2 DAYS Anaerobic Blood Culture - Preliminary NO GROWTH AFTER 2 DAYS Med Orders - Current: Current Medications Acetaminophen (Tylenol) 650 mg PO Q4H PRN PRN Reason: Fever Albuterol (Proventil Neb Soln) 2.5 mg INH TID PRN PRN Reason: Dyspnea Amoxicillin/Clavulanate Potassium (Augmentin 875 Mg/125 Mg) 1 tab PO BID [facility] Stop: 09/24/20 22:00 Aspirin (Aspirin) 81 mg PO DAILY [facility] Last Admin: 09/22/20 08:53 Dose: 81 mg Documented by: Bumetanide (Bumex) 0.5 mg PO DAILY [facility] Last Admin: 09/22/20 09:08 Dose: 0.5 mg Documented by: Camphor/Menthol (Sarna Lotion) 0 ml TOP BID [facility] Last Admin: 09/21/20 20:38 Dose: Not Given Documented by: Clopidogrel Bisulfate (Plavix) 75 mg PO DAILY [facility] Last Admin: 09/22/20 08:53 Dose: 75 mg Documented by: Gabapentin (Neurontin) 100 mg PO TID [facility] Last Admin: 09/22/20 08:55 Dose: 100 mg Documented by: Magnesium Oxide (Magnesium Oxide) 200 mg PO DAILY [facility] Last Admin: 09/22/20 08:53 Dose: 200 mg Documented by: Ondansetron HCl (Zofran) 4 mg IV Q8H PRN PRN Reason: Nausea/Vomiting Last Admin: 09/21/20 05:31 Dose: 4 mg Documented by: Pantoprazole Sodium (Protonix Iv) 40 mg IVPUSH Q24H [facility] Last Admin: 09/21/20 20:13 Dose: 40 mg Documented by: Saccharomyces Boulardii (Florastor) 500 mg PO BID [facility] Last Admin: 09/22/20 08:53 Dose: 500 mg Documented by: Sodium Chloride (Saline Flush) 10 ml FLUSH DAILY [facility] Last Admin: 09/22/20 00:40 Dose: 10 ml Documented by: Discontinued Medications Aspirin (Halfprin) 81 mg PO DAILY [facility] Cefepime HCl (Maxipime) 2 gm IVPUSH ONETIME ONE Stop: 09/19/20 18:58 Last Admin: 09/19/20 19:24 Dose: 2 gm Documented by: Cefepime HCl (Maxipime) 2 gm IVPUSH Q12H [facility] Cefepime HCl (Maxipime) 2 gm IVPUSH Q12H [facility] Last Admin: 09/21/20 08:30 Dose: 2 gm Documented by: Clopidogrel Bisulfate (Plavix) 300 mg PO ONETIME ONE Stop: 09/19/20 19:15 Last Admin: 09/19/20 19:22 Dose: 300 mg Documented by: Furosemide (Lasix) 40 mg IVPUSH NOW ONE Stop: 09/21/20 09:35 Last Admin: 09/21/20 10:41 Dose: 40 mg Documented by: Heparin Sodium (Porcine) (Heparin Sodium) 3,650 units IVPUSH ONETIME ONE Stop: 09/19/20 18:51 Last Admin: 09/19/20 19:33 Dose: 3,650 units Documented by: Sodium Chloride (Normal Saline) 500 mls @ 500 mls/hr IV .BOLUS ONE Stop: 09/19/20 17:37 Last Admin: 09/19/20 16:10 Dose: 500 mls/hr Documented by: Sodium Chloride (Normal Saline) 1,000 mls @ 999 mls/hr IV .BOLUS ONE Stop: 09/19/20 18:21 Last Admin: 09/19/20 18:00 Dose: 999 mls/hr Documented by: Piperacillin Sod/Tazobactam (Sod 3.375 gm/ Sodium Chloride) 50 mls @ 100 mls/hr IV .ONCE ONE Stop: 09/19/20 18:11 Last Admin: 09/19/20 18:07 Dose: 100 mls/hr Documented by: Heparin Sodium/Sodium Chloride (Heparin 25,000 Units In 1/2 Ns 500 Ml) 25,000 units in 500 mls @ 17.527 mls/hr IV TITRATE [facility]; Protocol Stop: 09/21/20 19:30 Last Admin: 09/21/20 05:13 Dose: 10 units/kg/hr, 14.606 mls/hr Documented by: Sodium Chloride (Normal Saline) 1,000 mls @ 100 mls/hr IV ASDIRECTED [facility] Last Admin: 09/20/20 23:36 Dose: 100 mls/hr Documented by: Piperacillin Sod/Tazobactam (Sod 3.375 gm/ Sodium Chloride) 50 mls @ 100 mls/hr IV Q6H [facility] Last Admin: 09/22/20 06:00 Dose: 100 mls/hr Documented by: Iopamidol (Isovue-370 (76%)) 100 ml IV ONETIME ONE Stop: 09/19/20 16:51 Last Admin: 09/19/20 17:18 Dose: 76 ml Documented by: Trimethoprim/Sulfamethoxazole (Septra Ds) 1 tab PO BID [facility] Stop: 09/23/20 21:01 Last Admin: 09/21/20 21:31 Dose: 1 tab Documented by: - Exam General: Alert, Oriented (person), Cooperative, No Acute Distress Lungs: Clear to Auscultation (Right lobe), Normal Respiratory Effort, Decreased Breath Sounds (LLL), Crackles (LLL). No: Wheezing Cardiovascular: Regular Rate, Regular Rhythm GI/Abdominal Exam: Normal Bowel Sounds, Soft, Non-Tender, No Distention Extremities: No Pedal Edema Peripheral Pulses: 2+: Radial (L), Radial (R) Sepsis Event Note - Evaluation Sepsis Screening Result: No Definite Risk - Focused Exam Vital Signs: Vital Signs Temp Pulse Resp BP Pulse Ox 09/22/20 08:00 98.3 F 76 24 H 118/64 90 L - Problem List & Annotations (1) NSTEMI (non-ST elevated myocardial infarction) SNOMED Code(s): 02229054 Code(s): I21.4 - NON-ST ELEVATION (NSTEMI) MYOCARDIAL INFARCTION Status: Acute Current Visit: Yes (2) Cholecystitis with cholelithiasis SNOMED Code(s): 222036074, 862732123 Code(s): K80.10 - CALCULUS OF GALLBLADDER W CHRONIC CHOLECYST W/O OBSTRUCTION Status: Acute Current Visit: Yes Qualifiers: Cholelithiasis location: gallbladder Cholecystitis acuity: acute Biliary obstruction: without biliary obstruction Qualified Code(s): K80.00 - Calculus of gallbladder with acute cholecystitis without obstruction (3) UTI (urinary tract infection) SNOMED Code(s): 24529890 Code(s): N39.0 - URINARY TRACT INFECTION, SITE NOT SPECIFIED Status: Acute Current Visit: No Annotation/Comment:: grew alpha strep, contamination so Bactrim discontinued. (4) Elevated lactic acid level SNOMED Code(s): 8929558 Code(s): R79.89 - OTHER SPECIFIED ABNORMAL FINDINGS OF BLOOD CHEMISTRY Status: Resolved Current Visit: Yes (5) DM2 (diabetes mellitus, type 2) SNOMED Code(s): 55895933 Code(s): E11.9 - TYPE 2 DIABETES MELLITUS WITHOUT COMPLICATIONS Status: Chronic Current Visit: No Annotation/Comment:: borderline, does not take any medications. (6) H/O: CVA (cerebrovascular accident) SNOMED Code(s): 950856560 Code(s): Z86.73 - PRSNL HX OF TIA (TIA), AND CEREB INFRC W/O RESID DEFICITS Status: Chronic Current Visit: No (7) HTN (hypertension) SNOMED Code(s): 46395728 Code(s): I10 - ESSENTIAL (PRIMARY) HYPERTENSION Status: Chronic Current Visit: No Qualifiers: Hypertension type: essential hypertension Qualified Code(s): I10 - Essential (primary) hypertension (8) DNR (do not resuscitate) Status: Acute Current Visit: Yes (9) Palliative care status SNOMED Code(s): 477404628 Code(s): Z51.5 - ENCOUNTER FOR PALLIATIVE CARE Status: Chronic Current Visit: Yes (10) Status post administration of all doses of COVID-19 vaccine series SNOMED Code(s): 845658851, 458736946 Code(s): Z92.29 - PERSONAL HISTORY OF OTHER DRUG THERAPY Status: Acute Current Visit: Yes - Problem List Review Problem List Initiated/Reviewed/Updated: Yes - My Orders Last 24 Hours: My Active Orders 09/21/20 16:45 Saccharomyces Boulardii [Florastor] 500 mg PO BID 09/21/20 21:00 Camphor/Menthol [Sarna Lotion] 0 ml TOP BID 09/22/20 09:00 Bumetanide [Bumex] 0.5 mg PO DAILY Magnesium Oxide 200 mg PO DAILY 09/22/20 12:00 Amoxicillin/Clavulanate K [Augmentin 875 MG/125 MG] 1 tab PO BID - Plan Plan:: 1. NSTEMI: Heparin drip discontinued last night, Plavix 75 mg daily along with Aspirin 81 mg chewable daily. 2. Cholecystitis/UTI: blood culture: no growth, urine culture: alpha strep, contamination so Bactrim discontinued. Discontinue Zosyn, start Amoxicillin/Clavulanate 875/125 mg q12. Repeat labs tomorrow. 3. Diet: Pureed to mechanical as tolerated. 4. Activity: bedrest, full body lift. 5. DVT prophylaxis: Plavix & ASA. 6. Discharge plan: if tolerated her diet/fluids and oral antibiotics today, plan to discharge tomorrow back to [facility].
[2020-09-22] MEDS: Camphor/Menthol 0.5-0.5% Lotion 222 ML Bottle TOP SCH ×2 (15:19→20:27)
[2020-09-22] MEDS ORDERED: metFORMIN 500 MG Tab PO SCH (18:00)
[2020-09-23] MEDS: Gabapentin 100 MG Cap PO SCH (08:51)
[2020-09-23] MEDS: Saccharomyces Boulardii (Probiotic) 250 MG Cap PO SCH (08:53)
[2020-09-23] MEDS: Aspirin 81 MG Tab.Chew PO SCH (08:55)
[2020-09-23] MEDS: Bumetanide 1 MG Tab PO SCH (08:56)
[2020-09-23] MEDS: Magnesium Oxide 400 MG Tab PO SCH (08:56)
[2020-09-23] MEDS: Clopidogrel 75 MG Tab PO SCH (08:57)
[2020-09-23] MEDS: Amoxicillin/Clavulanate K 875-125 MG Tab PO SCH (08:57)
[2020-09-23] MEDS: Camphor/Menthol 0.5-0.5% Lotion 222 ML Bottle TOP SCH (08:58)
[2020-09-23] MEDS ORDERED: Potassium Chloride 20 MEQ Tab.ER PO SCH (09:00)
[2020-09-23] MEDS ORDERED: Polyethylene Glycol 3350 Powder 17 GM Packet PO SCH (09:00)
[2020-09-23] MEDS: Sodium Chloride 0.9% 10 ML Syringe FLUSH SCH (09:06)
[2020-09-23 10:23] VITALS: BP 130/71; PULSE 76
--- NOTE | 2020-09-23 10:32 | PCM.DCSUM1 ---
Discharge Summary - Hospital Course HPI Initial Comments: Filomena presented to ER yesterday with loss of appetite, nausea, coughing, chills, weakness, tachycardia that started yesterday morning. Denied any chest pain, shortness of breath, abdominal pain, vomiting. She had chest x-ray on 09/14 with questionable RLL pneumonia but not placed on antibiotics. She had her 2nd COVID vaccine day before admission. She was found to have had an NSTEMI, troponin was 2723, 2197, CT chest/abdomen/pelvis: questionable Right lower lobe pneumonia vs fibrosis, cholelithiasis with cholecystitis, thickened bladder wall with abnormal urine study. WBC was 10.1 with Lactic acid of 2.5 then 1.3 when repeated. Chemistry was normal except BUN 28, AST 68, ALT 69, Alkaline phosphatase 408. She is a full body lift in the [facility], has some neurocognitive deficits, she is a DNR/DNI, they did not want her transferred to [place] for PCI intervention. Dr Rooney consulted Dr [facility] from ER, had advised Heparin drip, loading dose of Plavix 300 mg then to start today Plavix 75 mg daily with Aspirin 81 mg daily. COVID test was negative. Influenza was negative. Diagnosis: Stroke: No - Discharge Data Discharge Date: 09/23/20 Discharge Disposition: DC/Tfer to SNF 03 Condition: Fair - Referral to Home Health Date of Face to Face Encounter: 09/23/20 Reason for Homebound Status: [facility] Primary Care Physician: Luis Perdomo MD Skilled Need: Resume previous cares - Discharge Diagnosis/Problem(s) (1) NSTEMI (non-ST elevated myocardial infarction) SNOMED Code(s): 56581042 ICD Code: I21.4 - NON-ST ELEVATION (NSTEMI) MYOCARDIAL INFARCTION Status: Acute Current Visit: Yes (2) Cholecystitis with cholelithiasis SNOMED Code(s): 996630771, 305351379 ICD Code: K80.10 - CALCULUS OF GALLBLADDER W CHRONIC CHOLECYST W/O OBSTRUCTION Status: Acute Current Visit: Yes Qualifiers: Cholelithiasis location: gallbladder Cholecystitis acuity: acute Biliary obstruction: without biliary obstruction Qualified Code(s): K80.00 - Calculus of gallbladder with acute cholecystitis without obstruction (3) UTI (urinary tract infection) SNOMED Code(s): 08456659 ICD Code: N39.0 - URINARY TRACT INFECTION, SITE NOT SPECIFIED Status: Ruled-out Current Visit: No Problem Details: grew alpha strep, contamination so Bactrim discontinued. (4) Elevated lactic acid level SNOMED Code(s): 8812990 ICD Code: R79.89 - OTHER SPECIFIED ABNORMAL FINDINGS OF BLOOD CHEMISTRY Status: Resolved Current Visit: Yes (5) DM2 (diabetes mellitus, type 2) SNOMED Code(s): 66211949 ICD Code: E11.9 - TYPE 2 DIABETES MELLITUS WITHOUT COMPLICATIONS Status: Chronic Current Visit: No Problem Details: borderline, does not take any medications. (6) H/O: CVA (cerebrovascular accident) SNOMED Code(s): 681519055 ICD Code: Z86.73 - PRSNL HX OF TIA (TIA), AND CEREB INFRC W/O RESID DEFICITS Status: Chronic Current Visit: No (7) HTN (hypertension) SNOMED Code(s): 37516074 ICD Code: I10 - ESSENTIAL (PRIMARY) HYPERTENSION Status: Chronic Current Visit: No Qualifiers: Hypertension type: essential hypertension Qualified Code(s): I10 - Essential (primary) hypertension (8) DNR (do not resuscitate) Status: Acute Current Visit: Yes (9) Palliative care status SNOMED Code(s): 362689460 ICD Code: Z51.5 - ENCOUNTER FOR PALLIATIVE CARE Status: Chronic Current Visit: Yes (10) Status post administration of all doses of COVID-19 vaccine series SNOMED Code(s): 519581224, 904105158 ICD Code: Z92.29 - PERSONAL HISTORY OF OTHER DRUG THERAPY Status: Acute Current Visit: Yes (11) Adverse effect of COVID-19 vaccine SNOMED Code(s): 502985828 ICD Code: T50.B95A - ADVERSE EFFECT OF OTHER VIRAL VACCINES, INITIAL ENCOUNTER Status: Acute Current Visit: Yes - Patient Summary/Data Hospital Course: Filomena was admitted for medical management of NSTEMI, on Heparin drip for 48 hours, was in therapeutic range. Received loading dose of Plavix 300 mg and then 75 mg daily with Aspirin 81 mg daily per cardiology recommendations. Given her age, statin was not started, risks outweight benefits. Continued Metoprolol, decreased Lisinopril to 2.5 mg daily as her blood pressures were well controlled. NSTEMI happened under 24 hours after covid vaccination so pharmacy advised [facility] to file adverse reaction with [employer]. Her blood sugars were 120-140s, Metformin was restarted after 48 hours in the evening but morning dose 1000 mg was discontinued. Fasting blood sugar this morning was 116. She was found to have cholelithiasis with cholecystitis on admission, she was on Cefepime & Zosyn initially. Urine gram stain showed gram positive cocci so Cefepime was discontinued. Bactrim DS was started, she received 2 doses when her urine culture came back alpha strep, which was contaminant so Bactrim was discontinued. Zosyn was discontinued yesterday and started on oral Amoxicillin/Clavulanate, she has tolerated this and will finish course tomorrow evening. She had IV fluids initially and started having more pulmonary edema so saline locked, Lasix 40 mg IV x 1 given on 09/21, which improved her symptoms. Bumex was restarted 09/22, lungs continued to improve. She has some diarrhea initially but has slowed and no diarrhea today. Her diet of pureed to mechanical from [facility] was restarted on 09/20, her appetite has steadily improved. Potassium was low this morning, added KCL 20 mEq bid x 2 days. Repeat as outpatient. - Patient Instructions Diet: Pureed (to mechanical diet) Activity: As Tolerated Notify Provider of: Fever, Increased Pain, Nausea and/or Vomiting Other/Special Instructions: Follow up with Dr Perdomo in 1 week post NSTEMI, cholecystitis. - Discharge Plan *PRESCRIPTION DRUG MONITORING PROGRAM REVIEWED*: Not Applicable *COPY OF PRESCRIPTION DRUG MONITORING REPORT IN PATIENT ANA ROSA: Not Applicable Prescriptions/Med Rec: Acetaminophen 650 mg PO BID 30 Days #60 tab Aspirin 81 mg PO DAILY 30 Days #30 tab.chew Amoxicillin/Clavulanate K [Augmentin 875-125 MG] 1 tab PO BID 2 Days #3 tablet Saccharomyces Boulardii [Florastor] 500 mg PO BID 2 Days #3 cap Potassium Chloride [Klor-Con M20] 20 meq PO BID 2 Days #3 tab.er lisinopriL [Lisinopril] 2.5 mg PO DAILY 30 Days #30 tablet Clopidogrel [Plavix] 75 mg PO DAILY 30 Days #30 tablet Home Medications: Home Meds Acetaminophen 650 mg PO Q4HR PRN 09/19/20 [History] Albuterol Sulfate 1 ampule INH TID PRN 09/19/20 [History] Bumetanide [Bumex] 0.5 mg PO DAILY 09/19/20 [History] Camphor/Menthol [Sarna Lotion] 1 applic TOP BID 09/19/20 [History] Gabapentin [Neurontin] 100 mg PO TID 09/19/20 [History] Magnesium 250 mg PO DAILY 09/19/20 [History] Menthol [Biofreeze] 1 applic TOP BID 09/19/20 [History] Omeprazole 20 mg PO ACBREAKFAST 09/19/20 [History] metFORMIN [Glucophage] 500 mg PO BEDTIME 09/19/20 [History] polyethylene glycoL 3350 [MiraLAX] 17 g PO MOWEFR 09/19/20 [History] Acetaminophen 650 mg PO BID 30 Days #60 tab 09/23/20 [Rx] Amoxicillin/Clavulanate K [Augmentin 875-125 MG] 1 tab PO BID 2 Days #3 tablet 09/23/20 [Rx] Aspirin 81 mg PO DAILY 30 Days #30 tab.chew 09/23/20 [Rx] Clopidogrel [Plavix] 75 mg PO DAILY 30 Days #30 tablet 09/23/20 [Rx] Potassium Chloride [Klor-Con M20] 20 meq PO BID 2 Days #3 tab.er 09/23/20 [Rx] Saccharomyces Boulardii [Florastor] 500 mg PO BID 2 Days #3 cap 09/23/20 [Rx] lisinopriL [Lisinopril] 2.5 mg PO DAILY 30 Days #30 tablet 09/23/20 [Rx] Forms: ED Department Discharge Referrals: Luis Perdomo MD [Primary Care Provider] - - Discharge Summary/Plan Comment DC Time >30 min.: Yes - General Info Date of Service: 09/23/20 Subjective Update: Filomena is up having breakfast, drinking her coffee this morning. Denies any chest pain, shortness of breath, abdominal pain. No diarrhea. No nausea. No fevers. Tolerating oral antibiotics. Her sugars were 116 this morning. Functional Status: Reports: Pain Controlled, Tolerating Diet, Urinating. Denies: New Symptoms - Patient Data Vitals - Most Recent: Last Vital Signs Temp 97.5 F 09/22/20 22:49 Pulse 78 09/22/20 22:49 Resp 16 09/22/20 22:49 BP 124/59 L 09/22/20 22:49 Pulse Ox 93 L 09/22/20 22:49 Weight - Most Recent: 165 lb I&O - Last 24 hours: Intake & Output 09/22/20 09/23/20 09/23/20 22:59 06:59 14:59 Intake Total 250 150 Balance 250 150 Lab Results - Last 24 hrs: Laboratory Results - last 24 hr 09/22/20 09/22/20 09/22/20 Range/Units 12:32 17:28 20:21 Sodium (135-145) mmol/L Potassium (3.5-5.3) mmol/L Chloride (100-110) mmol/L Carbon Dioxide (21-32) mmol/L BUN (7-18) mg/dL Creatinine (0.55-1.02) mg/dL Est Cr Clr Drug Dosing mL/min Estimated GFR (MDRD) (>60) BUN/Creatinine Ratio (9-20) Glucose (80-116) mg/dL POC Glucose 150 H 129 H 140 H (74-100) mg/dL Calcium (8.6-10.2) mg/dL 09/23/20 09/23/20 Range/Units 06:00 06:07 Sodium 139 (135-145) mmol/L Potassium 3.1 L (3.5-5.3) mmol/L Chloride 104 (100-110) mmol/L Carbon Dioxide 24 (21-32) mmol/L BUN 20 H (7-18) mg/dL Creatinine 1.0 (0.55-1.02) mg/dL Est Cr Clr Drug Dosing 36.34 mL/min Estimated GFR (MDRD) 53 L (>60) BUN/Creatinine Ratio 20.0 (9-20) Glucose 116 (80-116) mg/dL POC Glucose 121 H (74-100) mg/dL Calcium 8.0 L (8.6-10.2) mg/dL PEDRITO Results - Last 24 hrs: Microbiology 09/19/20 16:48 Aerobic Blood Culture - Preliminary Blood - Venous NO GROWTH AFTER 3 DAYS Anaerobic Blood Culture - Preliminary NO GROWTH AFTER 3 DAYS 09/19/20 16:55 Aerobic Blood Culture - Preliminary Blood - Venous - Lab Draw NO GROWTH AFTER 3 DAYS Anaerobic Blood Culture - Preliminary NO GROWTH AFTER 3 DAYS 09/19/20 17:30 Urine Culture - Final Urine, Catheterized Gram Positive Cocci Med Orders - Current: Current Medications Acetaminophen (Tylenol) 650 mg PO Q4H PRN PRN Reason: Fever Last Admin: 09/23/20 08:52 Dose: 650 mg Documented by: Albuterol (Proventil Neb Soln) 2.5 mg INH TID PRN PRN Reason: Dyspnea Amoxicillin/Clavulanate Potassium (Augmentin 875 Mg/125 Mg) 1 tab PO BID [facility] Stop: 09/24/20 22:00 Last Admin: 09/23/20 08:57 Dose: 1 tab Documented by: Aspirin (Aspirin) 81 mg PO DAILY [facility] Last Admin: 09/23/20 08:55 Dose: 81 mg Documented by: Bumetanide (Bumex) 0.5 mg PO DAILY [facility] Last Admin: 09/23/20 08:56 Dose: 0.5 mg Documented by: Camphor/Menthol (Sarna Lotion) 0 ml TOP BID [facility] Last Admin: 09/23/20 08:58 Dose: 1 applic Documented by: Clopidogrel Bisulfate (Plavix) 75 mg PO DAILY [facility] Last Admin: 09/23/20 08:57 Dose: 75 mg Documented by: Gabapentin (Neurontin) 100 mg PO TID [facility] Last Admin: 09/23/20 08:51 Dose: 100 mg Documented by: Magnesium Oxide (Magnesium Oxide) 200 mg PO DAILY [facility] Last Admin: 09/23/20 08:56 Dose: 200 mg Documented by: Metformin HCl (Glucophage) 500 mg PO WITHDINNER [facility] Last Admin: 09/22/20 18:37 Dose: 500 mg Documented by: (Omeprazole [ Omeprazole] 20 Mg) * Ptom 20 mg PO DAILY@0600 [facility] Last Admin: 09/23/20 06:07 Dose: 20 mg Documented by: Ondansetron HCl (Zofran) 4 mg IV Q8H PRN PRN Reason: Nausea/Vomiting Last Admin: 09/21/20 05:31 Dose: 4 mg Documented by: Polyethylene Glycol (Miralax) 17 gm PO MOWEFR [facility] Last Admin: 09/23/20 08:52 Dose: 17 gm Documented by: Potassium Chloride (Klor-Con M20) 20 meq PO BID [facility] Stop: 09/25/20 09:01 Last Admin: 09/23/20 08:51 Dose: 20 meq Documented by: Saccharomyces Boulardii (Florastor) 500 mg PO BID [facility] Last Admin: 09/23/20 08:53 Dose: 500 mg Documented by: Sodium Chloride (Saline Flush) 10 ml FLUSH DAILY [facility] Last Admin: 09/23/20 09:06 Dose: Not Given Documented by: Discontinued Medications Aspirin (Halfprin) 81 mg PO DAILY [facility] Cefepime HCl (Maxipime) 2 gm IVPUSH ONETIME ONE Stop: 09/19/20 18:58 Last Admin: 09/19/20 19:24 Dose: 2 gm Documented by: Cefepime HCl (Maxipime) 2 gm IVPUSH Q12H DEO Cefepime HCl (Maxipime) 2 gm IVPUSH Q12H [facility] Last Admin: 09/21/20 08:30 Dose: 2 gm Documented by: Clopidogrel Bisulfate (Plavix) 300 mg PO ONETIME ONE Stop: 09/19/20 19:15 Last Admin: 09/19/20 19:22 Dose: 300 mg Documented by: Furosemide (Lasix) 40 mg IVPUSH NOW ONE Stop: 09/21/20 09:35 Last Admin: 09/21/20 10:41 Dose: 40 mg Documented by: Heparin Sodium (Porcine) (Heparin Sodium) 3,650 units IVPUSH ONETIME ONE Stop: 09/19/20 18:51 Last Admin: 09/19/20 19:33 Dose: 3,650 units Documented by: Sodium Chloride (Normal Saline) 500 mls @ 500 mls/hr IV .BOLUS ONE Stop: 09/19/20 17:37 Last Admin: 09/19/20 16:10 Dose: 500 mls/hr Documented by: Sodium Chloride (Normal Saline) 1,000 mls @ 999 mls/hr IV .BOLUS ONE Stop: 09/19/20 18:21 Last Admin: 09/19/20 18:00 Dose: 999 mls/hr Documented by: Piperacillin Sod/Tazobactam (Sod 3.375 gm/ Sodium Chloride) 50 mls @ 100 mls/hr IV .ONCE ONE Stop: 09/19/20 18:11 Last Admin: 09/19/20 18:07 Dose: 100 mls/hr Documented by: Heparin Sodium/Sodium Chloride (Heparin 25,000 Units In 1/2 Ns 500 Ml) 25,000 units in 500 mls @ 17.527 mls/hr IV TITRATE DEO; Protocol Stop: 09/21/20 19:30 Last Admin: 09/21/20 05:13 Dose: 10 units/kg/hr, 14.606 mls/hr Documented by: Sodium Chloride (Normal Saline) 1,000 mls @ 100 mls/hr IV ASDIRECTED [facility] Last Admin: 09/20/20 23:36 Dose: 100 mls/hr Documented by: Piperacillin Sod/Tazobactam (Sod 3.375 gm/ Sodium Chloride) 50 mls @ 100 mls/hr IV Q6H [facility] Last Admin: 09/22/20 06:00 Dose: 100 mls/hr Documented by: Iopamidol (Isovue-370 (76%)) 100 ml IV ONETIME ONE Stop: 09/19/20 16:51 Last Admin: 09/19/20 17:18 Dose: 76 ml Documented by: Pantoprazole Sodium (Protonix Iv) 40 mg IVPUSH Q24H [facility] Last Admin: 09/21/20 20:13 Dose: 40 mg Documented by: Trimethoprim/Sulfamethoxazole (Septra Ds) 1 tab PO BID [facility] Stop: 09/23/20 21:01 Last Admin: 09/21/20 21:31 Dose: 1 tab Documented by: - Exam General: Reports: Alert, Oriented, Cooperative, No Acute Distress Lungs: Reports: Clear to Auscultation (R lobe), Normal Respiratory Effort, Decreased Breath Sounds (LLL). Denies: Crackles, Wheezing Cardiovascular: Reports: Regular Rate, Regular Rhythm GI/Abdominal Exam: Normal Bowel Sounds, Soft, Non-Tender, No Distention Extremities: No Pedal Edema Skin: Reports: Warm, Dry, Intact
== END 2020-09-23 10:30 | DRG 281 ==
LOC: FB.ED 16:01 → FB.MS 19:01
PROVIDERS: ADMIT Emergency Medicine; ATTEND Family Medicine
DX: I21.4 Non-ST elevation (NSTEMI) myocardial infarction (principal); K80.00 Calculus of gallbladder with acute cholecystitis without obstruction; N39.0 Urinary tract infection, site not specified; R79.89 Other specified abnormal findings of blood chemistry; I10 Essential (primary) hypertension; Z66 Do not resuscitate; Z51.5 Encounter for palliative care; Z20.822 Contact with and (suspected) exposure to COVID-19; H54.7 Unspecified visual loss; K59.09 Other constipation; T50.B95A Adverse effect of other viral vaccines, initial encounter; M54.9 Dorsalgia, unspecified; G89.29 Other chronic pain; L89.329 Pressure ulcer of left buttock, unspecified stage; L89.319 Pressure ulcer of right buttock, unspecified stage; E11.622 Type 2 diabetes mellitus with other skin ulcer; K21.9 Gastro-esophageal reflux disease without esophagitis; Z92.29 Personal history of other drug therapy; Z79.01 Long term (current) use of anticoagulants; Z79.82 Long term (current) use of aspirin; Z79.84 Long term (current) use of oral hypoglycemic drugs; Z79.899 Other long term (current) drug therapy; Z90.710 Acquired absence of both cervix and uterus; Z90.49 Acquired absence of other specified parts of digestive tract; Z86.73 Personal history of transient ischemic attack (TIA), and cerebral infarction without residual deficits
CPT/HCPCS: 36415; 71260; 74177; 80048; 80053; 81001; 82962; 83605; 84484; 85025; 85610; 85730; 87040; 87086; 87088; 87804; 87804-59; 93005; 93010; 94760; 96365; 99285; 99285-25; A9270-GY; C9113; J0692; J1644; J1940; J2405; J2543; J7030; J7040; Q9967; U0002

== ENCOUNTER 2020-12-04 22:53 | Emergency (ER) | payer MEDICARE ==
--- NOTE | 2020-12-04 23:33 | EDM.PDOC ---
ED HPI GENERAL MEDICAL PROBLEM - General Time Seen by Provider: 12/04/20 23:10 Source of Information: Reports: Shelter Records History Limitations: Reports: No Limitations - History of Present Illness INITIAL COMMENTS - FREE TEXT/NARRATIVE: c/o low oxygen pt placed on oxygen 2h [employer] at detention, not usually on oxygen, however pt is 95% on oxygen here in ED on RA pt is DNR/DNI, moans at baseline, nonambulatory, [place] lift used son wanted her evaluated PMH: includes advanced dementia, NSTEMI 09/25, htn, CVA, DM pt hospitalized 09/19 for 4d for NSTEMI - Related Data Allergies Allergy/AdvReac Type Severity Reaction Status Date / Time No Known Allergies Allergy Verified 12/04/20 23:10 Home Meds: Home Meds Acetaminophen 650 mg PO Q4HR PRN 09/19/20 [History] Albuterol Sulfate 1 ampule INH TID PRN 09/19/20 [History] Bumetanide [Bumex] 0.5 mg PO DAILY 09/19/20 [History] Camphor/Menthol [Sarna Lotion] 1 applic TOP BID 09/19/20 [History] Gabapentin [Neurontin] 100 mg PO TID 09/19/20 [History] Magnesium 250 mg PO DAILY 09/19/20 [History] Menthol [Biofreeze] 1 applic TOP BID 09/19/20 [History] Omeprazole 20 mg PO ACBREAKFAST 09/19/20 [History] metFORMIN [Glucophage] 500 mg PO BEDTIME 09/19/20 [History] polyethylene glycoL 3350 [MiraLAX] 17 g PO MOWEFR 09/19/20 [History] Acetaminophen 650 mg PO BID 30 Days #60 tab 09/23/20 [Rx] Amoxicillin/Clavulanate K [Augmentin 875-125 MG] 1 tab PO BID 2 Days #3 tablet 09/23/20 [Rx] Aspirin 81 mg PO DAILY 30 Days #30 tab.chew 09/23/20 [Rx] Clopidogrel [Plavix] 75 mg PO DAILY 30 Days #30 tablet 09/23/20 [Rx] Potassium Chloride [Klor-Con M20] 20 meq PO BID 2 Days #3 tab.er 09/23/20 [Rx] Saccharomyces Boulardii [Florastor] 500 mg PO BID 2 Days #3 cap 09/23/20 [Rx] lisinopriL [Lisinopril] 2.5 mg PO DAILY 30 Days #30 tablet 09/23/20 [Rx] Past Medical History HEENT History: Reports: Impaired Vision Cardiovascular History: Reports: Hypertension Respiratory History: Reports: None Gastrointestinal History: Reports: Chronic Constipation, GERD Other Gastrointestinal History: problems with constipation Genitourinary History: Reports: None CABLE SWAGER History: Reports: Musculoskeletal History: Reports: Back Pain, Chronic Neurological History: Reports: CVA, TIA Psychiatric History: Reports: Dementia Endocrine/Metabolic History: Reports: Diabetes, Type II Other Endocrine/Metabolic History: borderline diabetic? Does not take pills for this, stopped at least 3 years ago Hematologic History: Reports: None Immunologic History: Reports: None Oncologic (Cancer) History: Reports: Ovarian Dermatologic History: Reports: Other (See Below) Other Dermatologic History: ulcer and open areas on labia, has pressure areas on buttocks. Has open area on Lt buttock and pressure there and coccyx area. - Infectious Disease History Infectious Disease History: Reports: Influenza - Past Surgical History Head Surgeries/Procedures: Reports: None HEENT Surgical History: Reports: None Cardiovascular Surgical History: Reports: None Respiratory Surgical History: Reports: None GI Surgical History: Reports: Appendectomy Female Surgical History: Reports: Hysterectomy Endocrine Surgical History: Reports: None Neurological Surgical History: Reports: None Musculoskeletal Surgical History: Reports: None Oncologic Surgical History: Reports: None Dermatological Surgical History: Reports: None Social & Family History - Family History Family Medical History: No Pertinent Family History HEENT: Reports: Cataract Cardiac: Reports: None Respiratory: Reports: Asthma GI: Reports: None : Reports: None OBGYN: Reports: Musculoskeletal: Reports: None Neurological: Reports: Migraines, Parkinson's Psychiatric: Reports: Anxiety Endocrine/Metabolic: Reports: None Hematologic: Reports: None Immunologic: Reports: None Dermatologic: Reports: None Oncologic: Reports: None - Caffeine Use Caffeine Use: Reports: None - Living Situation & Occupation Living situation: Reports: Extended Care Facility (Lives in [facility]) ED ROS GENERAL - Review of Systems Review Of Systems: See Below Constitutional: Reports: Weakness HEENT: Reports: No Symptoms Respiratory: Reports: No Symptoms. Denies: Cough Cardiovascular: Reports: No Symptoms Endocrine: Reports: No Symptoms GI/Abdominal: Reports: No Symptoms : Reports: No Symptoms Musculoskeletal: Reports: No Symptoms Skin: Reports: No Symptoms Neurological: Reports: No Symptoms Psychiatric: Reports: No Symptoms Hematologic/Lymphatic: Reports: No Symptoms Immunologic: Reports: No Symptoms ED EXAM, GENERAL - Physical Exam Exam: See Below General Appearance: No Apparent Distress, Other (resting comfortably here, feet in padded cushions, regular respirations, slight snores with inspiration) Nose: Normal Inspection Throat/Mouth: Other (edentulous) Head: Atraumatic, Normocephalic Neck: Normal Inspection, Supple, Non-Tender, Full Range of Motion Respiratory/Chest: No Respiratory Distress, Lungs Clear, Normal Breath Sounds, No Accessory Muscle Use, Chest Non-Tender Cardiovascular: Regular Rate, Rhythm, No Edema, Other (2/6 ERIC at LSB) GI/Abdominal: Normal Bowel Sounds, Soft, Non-Tender, No Distention Extremities: Normal Inspection, No Pedal Edema, Other (dec'd turgor UEs) Neurological: Other (sleeping) Lymphatic: No Adenopathy Course - Vital Signs Last Recorded V/S: Last Vital Signs Temp 36.7 C 12/04/20 23:10 Pulse 90 12/04/20 23:10 Resp 18 12/04/20 23:10 BP 138/73 12/04/20 23:10 Pulse Ox 99 12/04/20 23:10 - Orders/Labs/Meds Orders: Active Orders 24 hr Category Date Time Status Chest 1V Frontal [CR] Stat Exams 12/04/20 23:26 Ordered Labs: Laboratory Tests 12/04/20 12/04/20 12/04/20 Range/Units 23:35 23:35 23:35 WBC 13.8 H (3.0-10.3) x10-3/uL RBC 4.29 (3.60-5.20) x10(6)uL Hgb 13.2 D (11.4-15.5) g/dL Hct 39.9 (34.2-48.2) % MCV 92.9 (76.7-100.5) fL MCH 30.6 (23.9-33.9) pg MCHC 33.0 (31.9-34.8) g/dL RDW 14.6 (12.3-16.5) % Plt Count 443 (151-488) x10(3)uL MPV 8.2 (7.1-12.4) fL Neut % (Auto) 77.3 H (30.8-76.2) % Lymph % (Auto) 12.3 L (18.4-52.1) % [place] % (Auto) 9.6 (4.4-15.7) % Eos % (Auto) 0.1 L (0.6-8.1) % Baso % (Auto) 0.7 (0.2-1.5) % Neut # (Auto) 10.7 H (1.5-6.3) x10-3/uL Lymph # (Auto) 1.7 (1.0-4.4) x10-3/uL [place] # (Auto) 1.3 H (0.3-1.0) x10-3/uL Eos # (Auto) 0.0 (0.0-0.8) x10-3/uL Baso # (Auto) 0.1 (0.0-0.1) x10-3/uL Sodium 148 H D (135-145) mmol/L Potassium 3.4 L (3.5-5.3) mmol/L Chloride 107 D (100-110) mmol/L Carbon Dioxide 28 (21-32) mmol/L BUN 53 H D (7-18) mg/dL Creatinine 1.1 H (0.55-1.02) mg/dL Est Cr Clr Drug Dosing TNP Estimated GFR (MDRD) 47 L (>60) BUN/Creatinine Ratio 48.2 H (9-20) Glucose 246 H D (80-116) mg/dL Calcium 9.6 (8.6-10.2) mg/dL Total Bilirubin 0.9 (0.1-1.3) mg/dL AST 180 H* D (5-25) IU/L ALT 257 H* D (12-36) U/L Alkaline Phosphatase 789 H (56-112) IU/L Troponin I 16.5 (4.0-60.3) pg/mL C-Reactive Protein 1.9 H (0.5-0.9) mg/dL Total Protein 8.4 H (6.0-8.0) g/dL Albumin 3.0 L (3.2-4.6) g/dL Globulin 5.4 g/dL Albumin/Globulin Ratio 0.6 - Re-Assessments/Exams Free Text/Narrative Re-Assessment/Exam: 12/05/20 01:08 Lungs are clear on exam. CxR 1v prelim ED read with no obvious infiltrates or effusions. PO 90-95% here, yet pt reported with even lower O2 at detention, c/w a variable respiratory drive. trop is neg, yet pt has had a marked increase in both renal and liver function c/w multiorgan failure pt appears to be actively dying without evidence of an aspiration pneumonia or treatable medical condition these issues were d/w son Raman who is from the [place], he requested comfort measures, he said she has lived a long and good life Raman's brother , there is a 1/2 sister who he does not think will want to be involved BP and HR are WNL, her life expectancy is uncertain and can be several days to a week or more no temp pt has inc'd wbc c/w adrenergic stress Departure - Departure Time of Disposition: 01:02 Disposition: [facility] Condition: Serious Clinical Impression: Multiorgan failure, Acute renal failure, Acute liver failure, Dying/ measures, Hypoxia, Acute respiratory failure - Discharge Information *PRESCRIPTION DRUG MONITORING PROGRAM REVIEWED*: Not Applicable *COPY OF PRESCRIPTION DRUG MONITORING REPORT IN PATIENT ANA ROSA: Not Applicable Instructions: Palliative Care Referrals: Luis Perdomo MD [Primary Care Provider] - Additional Instructions: Her oxygen level is 90-95% here. May use O2 at 2 l/min via nasal cannula prn for comfort measures as her respiratory drive is variable. No acute infiltrates are appreciated on chest x-ray. Her liver and kidneys are failing. Provide comfort care. Consult hospice in the morning. Son is planning on driving up from [employer] later today. Sepsis Event Note (ED) - Evaluation Sepsis Screening Result: No Definite Risk - Focused Exam Vital Signs: Vital Signs Temp Pulse Resp BP Pulse Ox 12/04/20 23:10 36.7 C 90 18 138/73 99 - My Orders Last 24 Hours: My Active Orders 12/04/20 23:26 Chest 1V Frontal [CR] Stat - Assessment/Plan Last 24 Hours: My Active Orders 12/04/20 23:26 Chest 1V Frontal [CR] Stat
[2020-12-05 02:23] VITALS: BP 149/85; PULSE 87
--- NOTE | 2020-12-05 11:09 | CR ---
INDICATION: Weak. CHEST, ONE VIEW: Findings were compared with 09/14/20 and 10/02/19. An AP upright portable view of the chest was performed. The chest is rotated markedly to the left. The heart is difficult to evaluate for size and likely is at the upper limits of normal in size. However, there is also a poor inspiration as well as the AP positioning which limits evaluation of this heart size. The aorta is calcified in the arch area. A definite active infiltrate or effusion was not identified. IMPRESSION: Somewhat limited study - no definite acute process. When clinically possible, full inspiration PA and lateral views of the chest should be of further diagnostic benefit. MTDD
== END 2020-12-05 01:30 ==
LOC: FB.ED 22:53
DX: J96.01 Acute respiratory failure with hypoxia (principal); N17.9 Acute kidney failure, unspecified; K72.00 Acute and subacute hepatic failure without coma; K21.9 Gastro-esophageal reflux disease without esophagitis; I10 Essential (primary) hypertension; Z79.82 Long term (current) use of aspirin; Z79.02 Long term (current) use of antithrombotics/antiplatelets; Z79.899 Other long term (current) drug therapy
CPT/HCPCS: 36415; 71045; 80053; 84484; 85025; 86140; 99283; 99284-25